=== PATIENT | female | born 1965 | race African-American/Black ===

== ENCOUNTER 2016-07-07 10:41 | Inpatient (IN) | payer OTHER ==
[2016-07-07 11:07] VITALS: BMI 23.6
--- NOTE | 2016-07-07 13:31 | HP ---
Admission [facility] Chief Complaint: REHAB TX FOR ALCOHOL AND DRUG DEPENDENCE Allergies/Adverse Reactions: Allergies Allergy/AdvReac Type Severity Reaction Status Date / Time Penicillins Allergy Severe Hives Verified 07/07/16 12:51 History of Present Illness: 51 Y/O AA/ FEMALE WITH A HX OF ALCOHOL AND COCAINE DEPENDENCE SEEKING REHAB TX. Exam Limitations: No Limitations - Ebola screening Have you traveled outside of the country in the last 21 days: No Have you had contact with anyone from an Ebola affected area: No Have you been sick,other than usual withdrawal symptoms: No Do you have a fever: No - Review of Systems Constitutional: Chills, Night Sweats, Changes in sleep, Unintentional Wgt. Loss EENT: reports: Blurred Vision (WEARS GLASSES), Tearing, Nose Congestion, Dental Problems (BILATERAL DENTURES WITH PATIENT.) Respiratory: reports: Shortness of Breath (ASTHMA/COPD/BRONCHITIS HX), Wheezing Cardiac: reports: Lightheadedness GI: reports: Constipated, Poor Fluid Intake : reports: No Symptoms Reported Musculoskeletal: reports: Back Pain, Joint Pain, Other (ARTHRITIS LEGS/LOWER BACK.--USES WALKER.) Integumentary: reports: Rash (DRY/ ITCHY ON RIGHT ARM. ON A CREAM TX.) Neuro: reports: Headache, Tremors, Unsteady Gait, Dizziness Endocrine: reports: No Symptoms Reported Hematology: reports: No Symptoms Reported Psychiatric: reports: Orientated x3, Anxious, Depressed Other Systems: Reviewed and Negative Patient History - Patient Medical History Hx Anemia: No Hx Asthma: Yes Hx Chronic Obstructive Pulmonary Disease (COPD): Yes Hx Cardiac Disorders: No Hx Hypertension: No Hx Hypercholesterolemia: No HX Cerebrovascular Accident: No Hx Seizures: No Hx Diabetes: No Hx Gastrointestinal Disorders: Yes (TX IN THE PAST WITH PPI) Hx Genitourinary Disorders: Yes (UTI IN THE PAST) Hx Sexually Transmitted Disorders: Yes (SYPHILIS/GONORRHEA TX IN THE PAST.) Hx Renal Disease (ESRD): No Hx Thyroid Disease: No Hx Human Immunodeficiency Virus (HIV): Yes (SINCE 1993;ON NORVIR,TRUVADA, PRESIZTA,ISENTRESS.) Hx Hepatitis C: No Hx Depression: Yes (NO MEDS) Hx Suicide Attempt: No (DENIES) Hx Bipolar Disorder: No Hx Schizophrenia: No - Patient Surgical History Past Surgical History: Yes Hx Neurologic Surgery: No Hx Cataract Extraction: No Hx Cardiac Surgery: No Hx Lung Surgery: No Hx Breast Surgery: No Hx Breast Biopsy: No Hx Abdominal Surgery: Yes (BILATERAL INGUINAL HERNIA SX 1973) Hx Appendectomy: No Hx Cholecystectomy: No Hx Genitourinary Surgery: No Hx Section: Yes (X 1 IN 2003) Hx Orthopedic Surgery: No Hx Hysterectomy: No Other Surgical History: BILATERAL EYE CORRECTION SX 1974 Anesthesia Reaction: No - PPD History Previous Implant?: Yes Documented Results: Negative w/o proof PPD to be Administered?: Yes - Reproductive History Patient is a Female of Child Bearing Age (11 -55 yrs old): Yes LMP comment: 4 YRS AGO Patient : No - Smoking Cessation Smoking history: Current every day smoker Have you smoked in the past 12 months: Yes Aproximately how many cigarettes per day: 10 Hx Chewing Tobacco Use: No Initiated information on smoking cessation: Yes 'Breaking Loose' booklet given: 07/07/16 - Substance & Tx. History Hx Alcohol Use: Yes Hx Substance Use: Yes Substance Use Type: Alcohol, Cocaine Hx Substance Use Treatment: Yes ([facility] YRS AGO) - Substances Abused Alcohol Route: Oral Frequency: 3-6 times per week Amount used: 1 PINT VODKA Age of first use: 9 Date of Last Use: 07/05/16 Crack Route: Smoking Frequency: 3-6 times per week Amount used: $200 Age of first use: 21 Date of Last Use: 07/05/16 Family Disease History - Family Disease History Family Disease History: CA: Father, Mother (HTN), Other: Mother Admission Physical Exam [facility] - Vital Signs Vital Signs: Vital Signs - 24 hr 07/07/16 11:03 Temperature 98.4 F Pulse Rate 92 H Respiratory 20 Rate Blood Pressure 110/69 - Physical General Appearance: Yes: No Apparent Distress, Irritable, Anxious HEENTM: Yes: EOMI, Normocephalic, DOM, Pharynx Normal Respiratory: Yes: Chest Non-Tender, Lungs Clear, Normal Breath Sounds, No Respiratory Distress Neck: Yes: Supple, Trachea in good position Breast: Yes: Breast Exam Deferred Cardiology: Yes: Regular Rhythm, Regular Rate, S1, S2 Abdominal: Yes: Normal Bowel Sounds, Non Tender, Soft Genitourinary: Yes: Other (N/C) Musculoskeletal: Yes: full range of Motion, Gait Steady Extremities: Yes: Normal Range of Motion, Non-Tender Neurological: Yes: foundry helper II-XII NML intact, Fully Oriented, Alert Integumentary: Yes: Dry, Warm, Rash (RIGHT WRIST), Other (FACIAL SKIN TAGS) Lymphatic: Yes: Within Normal Limits - Diagnostic (1) Alcohol dependence with uncomplicated withdrawal Current Visit: Yes Status: Chronic (2) Cocaine dependence, uncomplicated Current Visit: Yes Status: Chronic (3) Asthma Current Visit: Yes Status: Chronic Qualifiers: Asthma severity: mild intermittent Asthma complication type: uncomplicated Qualified Code(s): J45.20 - Mild intermittent asthma, uncomplicated (4) History of COPD Current Visit: Yes Status: Chronic (5) HIV (human immunodeficiency virus infection) Current Visit: Yes Status: Chronic (6) GERD (gastroesophageal reflux disease) Current Visit: Yes Status: Chronic Qualifiers: Esophagitis presence: without esophagitis Qualified Code(s): K21.9 - Gastro-esophageal reflux disease without esophagitis (7) Uses walker Current Visit: Yes Status: Chronic (8) Eczema Current Visit: Yes Status: Acute Qualifiers: Eczema type: other Qualified Code(s): L30.8 - Other specified dermatitis Cleared for Admission S - Detox or Rehab Claeared for Rehab Admission: Yes S Breath Alcohol Content Breath Alcohol Content: 0 Urine Drug Screen - Results Drug Screen Negative: No Urine Drug Screen Results: ROHAN-Cocaine
[2016-07-07] MEDS ORDERED: MAG HYDROX/AL HYDROX/SIMETH 30 ML UNIT-DOSE CUP PO PRN (13:54)
[2016-07-07] MEDS ORDERED: NICOTINE POLACRILEX 2 MG GUM BUC PRN (13:54)
[2016-07-07] MEDS ORDERED: MENTHOL/PHENOL 1 EACH UD MM PRN (13:54)
[2016-07-07] MEDS ORDERED: hydrOXYzine PAMOATE 25 MG CAPSULE (FP) PO PRN (13:54)
[2016-07-07] MEDS ORDERED: IBUPROFEN 400 MG TABLET (FP) PO PRN (13:54)
[2016-07-07] MEDS ORDERED: ACETAMINOPHEN 325 MG TABLET (FP) PO PRN (13:54)
[2016-07-07] MEDS ORDERED: diphenhydrAMINE HCL 50 MG CAPSULE PO PRN (13:54)
[2016-07-07] MEDS ORDERED: LOPERAMIDE HCL 2 MG CAPSULE PO PRN (13:54)
[2016-07-07] MEDS ORDERED: MAGNESIUM HYDROX 2400MG/30ML ORAL SUSPENSION 30 ML CUP PO PRN (13:54)
[2016-07-07] MEDS ORDERED: guaiFENesin/D-METHORPHAN HB 10 ML UNIT-DOSE CUPS PO PRN (13:54)
[2016-07-07] MEDS ORDERED: MAGNESIUM CITRATE 300 ML BOTTLE PO PRN (13:54)
[2016-07-07 15:32] LABS: MCH 23.8 pg (25.7-33.7); MCHC 31.8 g/dl (32.0-36.0); MEAN CELL VOLUME 74.8 fl (80-96); MEAN PLT VOLUME 11.3 fl (7.5-11.1); PLATELET COUNT 172 K/MM3 (134-434); RDW 15.8 % (11.6-15.6)
[2016-07-07 15:46] LABS: URINE APPEARANCE CLEAR; URINE BILIRUBIN NEGATIVE (NEGATIVE); URINE BLOOD NEGATIVE (NEGATIVE); URINE COLOR LTYELLOW; URINE GLUCOSE (UA) NEGATIVE (NEGATIVE); URINE KETONE NEGATIVE (NEGATIVE); URINE NITRITE NEGATIVE (NEGATIVE); URINE PROTEIN NEGATIVE (NEGATIVE); URINE UROBILINOGEN NEGATIVE E.U./dl (0.2-1.0)
[2016-07-07] MEDS: NICOTINE 14 MG/24 HOURS TOPICAL PATCH TD SCH (16:00)
[2016-07-07 16:01] LABS: URINE LEUK ESTERASE TRACE (NEGATIVE)
[2016-07-07 16:07] LABS: ALBUMIN 3.5 g/dl (3.4-5.0); BILIRUBIN,TOTAL 0.2 mg/dL (0.2-1.0); CALCIUM 8.8 mg/dL (8.5-10.1); TOT PROT 7.8 g/dl (6.4-8.2)
[2016-07-07 16:21] LABS: URINE BACTERIA FEW /hpf (NONE SEEN); URINE HYALINE CAST 2 /lpf; URINE RBC 2 /hpf (0-3); URINE WBC 6 /hpf (3-5)
[2016-07-07] MEDS ORDERED: PT OWN MED DRAWER 7, Y5N ONE (22:10)
[2016-07-07] MEDS: RALTEGRAVIR POTASSIUM 400 MG TAB PO SCH (23:13)
[2016-07-07] MEDS: HYDROCORTISONE 1% TOPICAL CREAM 30 GM TUBE TP SCH (23:13)
[2016-07-07] MEDS: TRIAMCINOLONE ACET 0.025% OINTMENT 15 GM TUBE TP SCH (23:13)
[2016-07-07] MEDS: EMTRICITABINE 200MG/TENOFOVIR 300MG PO SCH (23:14)
[2016-07-07] MEDS: KETOCONOZOLE 2% TOPICAL CREAM 15 GM TUBE TP SCH (23:14)
[2016-07-07] MEDS: RITONAVIR 100 MG TABLET PO SCH (23:14)
[2016-07-07] MEDS: THIAMINE HCL 100 MG TABLET (FP) PO SCH (23:14)
[2016-07-07] MEDS: DARUNAVIR ETHANOLATE 800 MG TAB PO SCH (23:14)
[2016-07-08] MEDS ORDERED: PT OWN MED DRAWER 7, Y5N ONE ×5 (08:59→23:38)
--- NOTE | 2016-07-08 10:08 | EKG ---
Test Reason : Blood Pressure : / mmHG Vent. Rate : 068 BPM Atrial Rate : 068 BPM P-R Int : 142 ms QRS Dur : 082 ms QT Int : 436 ms P-R-T Axes : 024 041 054 degrees QTc Int : 463 ms NORMAL SINUS RHYTHM MINIMAL VOLTAGE CRITERIA FOR LVH, MAY BE NORMAL VARIANT BORDERLINE ECG NO PREVIOUS ECGS AVAILABLE Confirmed by DAVID BRO MD ([id number]) on 07/08/2016 10:08:26 AM Referred By: Cathy Davey Confirmed By:DAVID BRO MD
[2016-07-08] MEDS: PRENATAL VITAMINS W/ FOLIC ACID TABLET (FP) PO SCH (10:19)
[2016-07-08] MEDS: KETOCONOZOLE 2% TOPICAL CREAM 15 GM TUBE TP SCH (10:20)
[2016-07-08] MEDS: TRIAMCINOLONE ACET 0.025% OINTMENT 15 GM TUBE TP SCH (10:20)
[2016-07-08] MEDS: NICOTINE 14 MG/24 HOURS TOPICAL PATCH TD SCH (10:21)
[2016-07-08] MEDS: HYDROCORTISONE 1% TOPICAL CREAM 30 GM TUBE TP SCH (10:21)
[2016-07-08] MEDS ORDERED: PNEUMOC 13-VAL CONJ-DIP CRM/PF 0.5 ML DISP.SYRIN IM ONE (12:00)
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
--- NOTE | 2016-07-08 14:29 | PN ---
[facility] Progress Note Note: Pt. has abscess rt. axilla Vital Signs - 8 hr 07/08/16 07:18 Temperature 98.0 F Pulse Rate 67 Respiratory 18 Rate Blood Pressure 123/88 Laboratory Tests 07/07/16 07/07/16 07/07/16 13:00 13:00 13:00 WBC 2.0 L RBC 4.44 Hgb 10.6 L Hct 33.2 MCV 74.8 L MCHC 31.8 L RDW 15.8 H Plt Count 172 MPV 11.3 H Sickle Cell Screen Sodium 141 Potassium 4.1 Chloride 105 Carbon Dioxide 26 Anion Gap 10 BUN 15 Creatinine 1.0 Creat Clearance w eGFR 58.45 Random Glucose 91 Calcium 8.8 Total Bilirubin 0.2 AST 16 ALT 17 Alkaline Phosphatase 121 H Total Protein 7.8 Albumin 3.5 Urine Color Urine Appearance Urine pH Ur Specific [place] Urine Protein Urine Glucose (UA) Urine Ketones Urine Blood Urine Nitrite Urine Bilirubin Urine Urobilinogen Ur Leukocyte Esterase Urine RBC Urine WBC Ur Epithelial Cells Urine Bacteria Hyaline Casts RPR Titer Nonreactive 07/07/16 07/07/16 13:00 14:00 WBC RBC Hgb Hct MCV MCHC RDW Plt Count MPV Sickle Cell Screen Negative Sodium Potassium Chloride Carbon Dioxide Anion Gap BUN Creatinine Creat Clearance w eGFR Random Glucose Calcium Total Bilirubin AST ALT Alkaline Phosphatase Total Protein Albumin Urine Color Ltyellow Urine Appearance Clear Urine pH 6.0 Ur Specific [place] 1.020 Urine Protein Negative Urine Glucose (UA) Negative Urine Ketones Negative Urine Blood Negative Urine Nitrite Negative Urine Bilirubin Negative Urine Urobilinogen Negative Ur Leukocyte Esterase Trace H Urine RBC 2 Urine WBC 6 Ur Epithelial Cells Moderate Urine Bacteria Few Hyaline Casts 2 RPR Titer labs noted,consistent with AIDS
[2016-07-08] MEDS ORDERED: SULFAMETHOXAZOLE/TRIMETHOPRIM 800MG/160MG D.S. TABLET PO ONE (14:45)
[2016-07-08] MEDS: COLLOIDAL OATMEAL 1 BAR EACH TP PRN (15:17)
[2016-07-08] MEDS: THIAMINE HCL 100 MG TABLET (FP) PO SCH (21:51)
[2016-07-08] MEDS: DARUNAVIR ETHANOLATE 800 MG TAB PO SCH (21:52)
[2016-07-08] MEDS: RITONAVIR 100 MG TABLET PO SCH (21:52)
[2016-07-08] MEDS: BACITRACIN 0.9 GM PACKET TP SCH (21:53)
[2016-07-08] MEDS: RALTEGRAVIR POTASSIUM 400 MG TAB PO SCH (21:53)
[2016-07-08] MEDS: SULFAMETHOXAZOLE/TRIMETHOPRIM 800MG/160MG D.S. TABLET PO SCH (21:54)
[2016-07-08] MEDS: EMTRICITABINE 200MG/TENOFOVIR 300MG PO SCH (21:54)
[2016-07-08] MEDS: HYDROCORTISONE 1% TOPICAL CREAM 30 GM TUBE TP PRN (21:55)
[2016-07-08] MEDS: KETOCONOZOLE 2% TOPICAL CREAM 15 GM TUBE TP PRN (21:57)
[2016-07-08] MEDS: AMMONIUM LACTATE 12% LOTION 225 GM BOTTLE TP PRN (21:58)
[2016-07-08] MEDS: TRIAMCINOLONE ACET 0.025% OINTMENT 15 GM TUBE TP PRN (21:59)
[2016-07-09] MEDS: HYDROCORTISONE 1% TOPICAL CREAM 30 GM TUBE TP PRN (06:46)
[2016-07-09] MEDS: KETOCONOZOLE 2% TOPICAL CREAM 15 GM TUBE TP PRN (06:46)
[2016-07-09] MEDS ORDERED: PT OWN MED DRAWER 7, Y5N ONE (06:47)
[2016-07-09] MEDS: TRIAMCINOLONE ACET 0.025% OINTMENT 15 GM TUBE TP PRN ×2 (06:47→21:44)
[2016-07-09] MEDS: AMMONIUM LACTATE 12% LOTION 225 GM BOTTLE TP PRN ×2 (06:47→21:44)
[2016-07-09] MEDS: BACITRACIN 0.9 GM PACKET TP SCH ×2 (10:44→21:43)
[2016-07-09] MEDS: PRENATAL VITAMINS W/ FOLIC ACID TABLET (FP) PO SCH (10:44)
[2016-07-09] MEDS: NICOTINE 14 MG/24 HOURS TOPICAL PATCH TD SCH (10:44)
[2016-07-09] MEDS: SULFAMETHOXAZOLE/TRIMETHOPRIM 800MG/160MG D.S. TABLET PO SCH ×2 (10:44→21:43)
[2016-07-09] MEDS: DARUNAVIR ETHANOLATE 800 MG TAB PO SCH (21:40)
[2016-07-09] MEDS: RITONAVIR 100 MG TABLET PO SCH (21:40)
[2016-07-09] MEDS: RALTEGRAVIR POTASSIUM 400 MG TAB PO SCH (21:41)
[2016-07-09] MEDS: THIAMINE HCL 100 MG TABLET (FP) PO SCH (21:41)
[2016-07-09] MEDS: EMTRICITABINE 200MG/TENOFOVIR 300MG PO SCH (23:37)
[2016-07-10] MEDS ORDERED: PT OWN MED DRAWER 7, Y5N ONE ×4 (07:05→19:49)
[2016-07-10] MEDS: HYDROCORTISONE 1% TOPICAL CREAM 30 GM TUBE TP PRN ×2 (07:11→21:45)
[2016-07-10] MEDS: TRIAMCINOLONE ACET 0.025% OINTMENT 15 GM TUBE TP PRN ×2 (07:11→21:44)
[2016-07-10] MEDS: KETOCONOZOLE 2% TOPICAL CREAM 15 GM TUBE TP PRN (07:12)
[2016-07-10] MEDS: AMMONIUM LACTATE 12% LOTION 225 GM BOTTLE TP PRN ×2 (07:12→21:44)
[2016-07-10] MEDS: PRENATAL VITAMINS W/ FOLIC ACID TABLET (FP) PO SCH (10:32)
[2016-07-10] MEDS: BACITRACIN 0.9 GM PACKET TP SCH ×2 (10:33→21:42)
[2016-07-10] MEDS: SULFAMETHOXAZOLE/TRIMETHOPRIM 800MG/160MG D.S. TABLET PO SCH ×2 (10:33→21:42)
[2016-07-10] MEDS: NICOTINE 14 MG/24 HOURS TOPICAL PATCH TD SCH (10:34)
[2016-07-10] MEDS: RALTEGRAVIR POTASSIUM 400 MG TAB PO SCH (21:40)
[2016-07-10] MEDS: EMTRICITABINE 200MG/TENOFOVIR 300MG PO SCH (21:40)
[2016-07-10] MEDS: DARUNAVIR ETHANOLATE 800 MG TAB PO SCH (21:40)
[2016-07-10] MEDS: THIAMINE HCL 100 MG TABLET (FP) PO SCH (21:41)
[2016-07-10] MEDS: RITONAVIR 100 MG TABLET PO SCH (21:43)
[2016-07-11] MEDS: PRENATAL VITAMINS W/ FOLIC ACID TABLET (FP) PO SCH (10:15)
[2016-07-11] MEDS: BACITRACIN 0.9 GM PACKET TP SCH ×2 (10:15→21:35)
[2016-07-11] MEDS: SULFAMETHOXAZOLE/TRIMETHOPRIM 800MG/160MG D.S. TABLET PO SCH ×2 (10:15→21:33)
[2016-07-11] MEDS: NICOTINE 14 MG/24 HOURS TOPICAL PATCH TD SCH (10:16)
[2016-07-11] MEDS ORDERED: PT OWN MED DRAWER 7, Y5N ONE (20:30)
[2016-07-11] MEDS: THIAMINE HCL 100 MG TABLET (FP) PO SCH (21:33)
[2016-07-11] MEDS: DARUNAVIR ETHANOLATE 800 MG TAB PO SCH (21:33)
[2016-07-11] MEDS: RITONAVIR 100 MG TABLET PO SCH (21:34)
[2016-07-11] MEDS: RALTEGRAVIR POTASSIUM 400 MG TAB PO SCH (21:34)
[2016-07-11] MEDS: EMTRICITABINE 200MG/TENOFOVIR 300MG PO SCH (21:35)
[2016-07-12] MEDS: TRIAMCINOLONE ACET 0.025% OINTMENT 15 GM TUBE TP PRN (06:25)
[2016-07-12] MEDS: AMMONIUM LACTATE 12% LOTION 225 GM BOTTLE TP PRN (06:25)
[2016-07-12] MEDS: HYDROCORTISONE 1% TOPICAL CREAM 30 GM TUBE TP PRN (06:25)
[2016-07-12] MEDS: KETOCONOZOLE 2% TOPICAL CREAM 15 GM TUBE TP PRN (06:26)
[2016-07-12] MEDS: BACITRACIN 0.9 GM PACKET TP SCH ×2 (10:13→23:25)
[2016-07-12] MEDS: NICOTINE 14 MG/24 HOURS TOPICAL PATCH TD SCH (10:13)
[2016-07-12] MEDS: SULFAMETHOXAZOLE/TRIMETHOPRIM 800MG/160MG D.S. TABLET PO SCH ×2 (10:14→21:29)
[2016-07-12] MEDS: PRENATAL VITAMINS W/ FOLIC ACID TABLET (FP) PO SCH (10:14)
[2016-07-12] MEDS ORDERED: PT OWN MED DRAWER 7, Y5N ONE ×2 (19:59→21:32)
[2016-07-12] MEDS: RALTEGRAVIR POTASSIUM 400 MG TAB PO SCH (21:28)
[2016-07-12] MEDS: DARUNAVIR ETHANOLATE 800 MG TAB PO SCH (21:28)
[2016-07-12] MEDS: RITONAVIR 100 MG TABLET PO SCH (21:28)
[2016-07-12] MEDS: THIAMINE HCL 100 MG TABLET (FP) PO SCH (21:29)
[2016-07-12] MEDS: EMTRICITABINE 200MG/TENOFOVIR 300MG PO SCH (23:25)
[2016-07-13] MEDS: SULFAMETHOXAZOLE/TRIMETHOPRIM 800MG/160MG D.S. TABLET PO SCH ×2 (10:19→21:29)
[2016-07-13] MEDS: PRENATAL VITAMINS W/ FOLIC ACID TABLET (FP) PO SCH (10:19)
[2016-07-13] MEDS: NICOTINE 14 MG/24 HOURS TOPICAL PATCH TD SCH (10:19)
[2016-07-13] MEDS: BACITRACIN 0.9 GM PACKET TP SCH ×2 (10:19→21:29)
[2016-07-13] MEDS: HYDROCORTISONE 1% TOPICAL CREAM 30 GM TUBE TP PRN (10:22)
[2016-07-13] MEDS ORDERED: PT OWN MED DRAWER 7, Y5N ONE ×2 (10:22→20:18)
[2016-07-13] MEDS: KETOCONOZOLE 2% TOPICAL CREAM 15 GM TUBE TP PRN (10:22)
[2016-07-13] MEDS: TRIAMCINOLONE ACET 0.025% OINTMENT 15 GM TUBE TP PRN (10:22)
[2016-07-13] MEDS: RALTEGRAVIR POTASSIUM 400 MG TAB PO SCH (21:28)
[2016-07-13] MEDS: DARUNAVIR ETHANOLATE 800 MG TAB PO SCH (21:28)
[2016-07-13] MEDS: EMTRICITABINE 200MG/TENOFOVIR 300MG PO SCH (21:28)
[2016-07-13] MEDS: THIAMINE HCL 100 MG TABLET (FP) PO SCH (21:29)
[2016-07-13] MEDS: RITONAVIR 100 MG TABLET PO SCH (21:29)
[2016-07-14] MEDS: KETOCONOZOLE 2% TOPICAL CREAM 15 GM TUBE TP PRN (06:31)
[2016-07-14] MEDS: TRIAMCINOLONE ACET 0.025% OINTMENT 15 GM TUBE TP PRN (06:31)
[2016-07-14] MEDS: AMMONIUM LACTATE 12% LOTION 225 GM BOTTLE TP PRN (06:31)
[2016-07-14] MEDS: HYDROCORTISONE 1% TOPICAL CREAM 30 GM TUBE TP PRN (06:32)
[2016-07-14] MEDS ORDERED: PT OWN MED DRAWER 7, Y5N ONE (08:59)
[2016-07-14] MEDS: SULFAMETHOXAZOLE/TRIMETHOPRIM 800MG/160MG D.S. TABLET PO SCH ×2 (10:15→21:41)
[2016-07-14] MEDS: PRENATAL VITAMINS W/ FOLIC ACID TABLET (FP) PO SCH (10:15)
[2016-07-14] MEDS: BACITRACIN 0.9 GM PACKET TP SCH ×2 (10:16→21:40)
[2016-07-14] MEDS: NICOTINE 14 MG/24 HOURS TOPICAL PATCH TD SCH (10:16)
[2016-07-14] MEDS: RALTEGRAVIR POTASSIUM 400 MG TAB PO SCH (21:41)
[2016-07-14] MEDS: DARUNAVIR ETHANOLATE 800 MG TAB PO SCH (21:41)
[2016-07-14] MEDS: RITONAVIR 100 MG TABLET PO SCH (21:41)
[2016-07-14] MEDS: THIAMINE HCL 100 MG TABLET (FP) PO SCH (21:41)
[2016-07-14] MEDS: EMTRICITABINE 200MG/TENOFOVIR 300MG PO SCH (21:42)
[2016-07-15] MEDS: AMMONIUM LACTATE 12% LOTION 225 GM BOTTLE TP PRN ×2 (06:19→21:57)
[2016-07-15] MEDS: HYDROCORTISONE 1% TOPICAL CREAM 30 GM TUBE TP PRN ×2 (06:20→21:56)
[2016-07-15] MEDS: TRIAMCINOLONE ACET 0.025% OINTMENT 15 GM TUBE TP PRN ×2 (06:20→21:58)
[2016-07-15] MEDS: KETOCONOZOLE 2% TOPICAL CREAM 15 GM TUBE TP PRN (06:20)
[2016-07-15] MEDS ORDERED: PT OWN MED DRAWER 7, Y5N ONE ×2 (09:11→21:42)
[2016-07-15] MEDS: PRENATAL VITAMINS W/ FOLIC ACID TABLET (FP) PO SCH (10:24)
[2016-07-15] MEDS: NICOTINE 14 MG/24 HOURS TOPICAL PATCH TD SCH (10:24)
[2016-07-15] MEDS: SULFAMETHOXAZOLE/TRIMETHOPRIM 800MG/160MG D.S. TABLET PO SCH ×2 (10:24→21:51)
[2016-07-15] MEDS: BACITRACIN 0.9 GM PACKET TP SCH ×2 (10:24→21:55)
[2016-07-15] MEDS: THIAMINE HCL 100 MG TABLET (FP) PO SCH (21:51)
[2016-07-15] MEDS: RALTEGRAVIR POTASSIUM 400 MG TAB PO SCH (21:52)
[2016-07-15] MEDS: DARUNAVIR ETHANOLATE 800 MG TAB PO SCH (21:53)
[2016-07-15] MEDS: RITONAVIR 100 MG TABLET PO SCH (21:54)
[2016-07-15] MEDS: EMTRICITABINE 200MG/TENOFOVIR 300MG PO SCH (21:54)
[2016-07-16] MEDS: SULFAMETHOXAZOLE/TRIMETHOPRIM 800MG/160MG D.S. TABLET PO SCH ×2 (10:40→21:30)
[2016-07-16] MEDS: BACITRACIN 0.9 GM PACKET TP SCH ×2 (10:40→21:29)
[2016-07-16] MEDS: PRENATAL VITAMINS W/ FOLIC ACID TABLET (FP) PO SCH (10:40)
[2016-07-16] MEDS: NICOTINE 14 MG/24 HOURS TOPICAL PATCH TD SCH (10:41)
--- NOTE | 2016-07-16 11:36 | PN ---
Psychiatric Progress Note Vital Signs: Vital Signs Period Temp Pulse Resp BP Sys/Nelson Pulse Ox Last 24 Hr 98.0 F 80 16-18 104/71 Date of Session: 07/16/16 Chief Complaint:: "anxious" HPI: Patient is addressing alcohol,cocaine dependence comorbid substance induced mood disorder. ROS: Significant for HIV+,Eczema,COPD,GERD,BA medically managed. Current Medications: Active Medications Generic Name Dose Route Start Last Admin Trade Name Freq PRN Reason Stop Dose Admin Acetaminophen 650 mg 07/07/16 13:54 Tylenol - PO Q4H PRN PAIN Al Hydroxide/Mg Hydroxide 30 ml 07/07/16 13:54 07/15/16 06:59 Mylanta Oral Suspension - PO 30 ml Q6H PRN Administration DYSPEPSIA Bacitracin 0.9 gm 07/08/16 22:00 07/16/16 10:40 Bacitracin - TP 0.9 gm BID JOSUE Administration Colloidal Oatmeal 1 applic 07/08/16 14:21 07/08/16 15:17 Aveeno Soap - TP 1 bar DAILY PRN Administration HYGEINE Darunavir 800 mg 07/07/16 22:00 07/15/16 21:53 Prezista - PO 800 mg HS JOSUE Administration Diphenhydramine HCl 50 mg 07/07/16 13:54 Benadryl - PO HSMR1 PRN INSOMNIA Emtricitabine/Tenofovir 1 tab 07/07/16 22:00 07/15/16 21:54 Truvada PO 1 tab HS JOSUE Administration Eucalyptus/Menthol/Phenol/Sorbitol 1 each 07/07/16 13:54 Cepastat Lozenge - MM Q4H PRN SORE THROAT Guaifenesin 10 ml 07/07/16 13:54 Robitussin Dm - PO Q6H PRN COUGH Hydrocortisone 1 applic 07/08/16 14:27 07/15/16 21:56 Hytone 1% Cream - TP 1 applic BID PRN Administration rash Hydroxyzine Pamoate 25 mg 07/07/16 13:54 Vistaril - PO Q4H PRN AGITATION Ibuprofen 400 mg 07/07/16 13:54 07/10/16 19:00 Motrin - PO 400 mg Q6H PRN Administration SEVERE PAIN Ketoconazole 1 applic 07/08/16 14:27 07/15/16 06:20 Nizoral 2% Cream - TP 1 applic BID PRN Administration rash Lactic Acid 1 applic 07/08/16 14:22 07/15/16 21:57 Lac-Hydrin 12 TP 1 applic BID PRN Administration DRY SKIN Loperamide HCl 4 mg 07/07/16 13:54 Imodium - PO Q6H PRN DIARRHEA Magnesium Citrate 300 ml 07/07/16 13:54 Citroma - PO Q48H PRN CONSTIPATION Magnesium Hydroxide 30 ml 07/07/16 13:54 07/14/16 18:00 Milk Of Magnesia - PO 30 ml DAILY PRN Administration CONSTIPATION Nicotine 14 mg 07/07/16 14:40 07/16/16 10:41 Nicoderm Patch - TD Not Given DAILY JOSUE Nicotine Polacrilex 2 mg 07/07/16 13:54 Nicorette Gum - BUC Q2H PRN NICOTINE REPLACEMENT RX Multivit/Folic Acid/Iron 1 tab 07/08/16 10:00 07/16/16 10:40 Vitamins (Sjr) - PO 1 tab DAILY JOSUE Administration Pseudoephedrine/Triprolidine 1 combo 07/07/16 13:54 Actifed - PO TID PRN NASAL CONGESTION Raltegravir 800 mg 07/07/16 22:00 07/15/16 21:52 Isentress - PO 800 mg HS JOSUE Administration Ritonavir 100 mg 07/07/16 22:00 07/15/16 21:54 Norvir - PO 100 mg HS JOSUE Administration Thiamine HCl 100 mg 07/07/16 22:00 07/15/16 21:51 Vitamin B1 - PO 100 mg HS JOSUE Administration Triamcinolone Acetonide 1 applic 07/08/16 14:27 07/15/16 21:58 Aristocort 0.025% Ointment - TP 1 applic BID PRN Administration rash Trimethoprim/Sulfamethoxazole 1 each 07/08/16 22:00 07/16/16 10:40 Bactrim Ds - PO 07/18/16 21:59 1 each BID JOSUE Administration Medication(s) Change(s): Buspar 5 mg po tid Current Side Effect: No Lab tests ordered: No Lab tests reviewed: Yes Provider note:: Patient reports feeling very anxious, states was on Depakote 2 years ago due to mood swings and Seroquel which she does not like due to sedation, she reports she has a difficult time to stay in groups due to her anxiety. Reviewed indications and properties of buspar, psychoeducation and supportive therapy provided, patient agreed to start Buspar 5 mg po tid, will start, will adjust dosage when indicated, monitor progress. Total face to face time:: 30 Mental Status Exam - Mental Status Exam Alert and Oriented to: Time, Place, Person Cognitive Function: Good Patient Appearance: Well Groomed Mood: Suspicious, Anxious, Irritable Affect: Appropriate, Labile Patient Behavior: Cooperative Speech Pattern: Appropriate Voice Loudness: Normal Thought Process: Intact, Goal Oriented Thought Disorder: Not Present Hallucinations: Denies Suicidal Ideation: Denies Homicidal Ideation: Denies Insight/Judgement: Fair Sleep: Fair Appetite: Fair Muscle strength/Tone: Normal Gait/Station: Normal Psychiatric Treatment Plan - Problem List (1) Cocaine dependence, uncomplicated Current Visit: Yes (2) Substance induced mood disorder Current Visit: Yes (3) Alcohol dependence Current Visit: Yes
[2016-07-16] MEDS: busPIRone HCL 5 MG TABLET PO SCH ×2 (13:35→21:29)
[2016-07-16] MEDS: DARUNAVIR ETHANOLATE 800 MG TAB PO SCH (21:29)
[2016-07-16] MEDS: RALTEGRAVIR POTASSIUM 400 MG TAB PO SCH (21:29)
[2016-07-16] MEDS ORDERED: PT OWN MED DRAWER 7, Y5N ONE (21:33)
[2016-07-16] MEDS: RITONAVIR 100 MG TABLET PO SCH (21:33)
[2016-07-16] MEDS: EMTRICITABINE 200MG/TENOFOVIR 300MG PO SCH (21:34)
[2016-07-16] MEDS: THIAMINE HCL 100 MG TABLET (FP) PO SCH (21:35)
[2016-07-17] MEDS ORDERED: PT OWN MED DRAWER 7, Y5N ONE ×2 (06:18→19:45)
[2016-07-17] MEDS: busPIRone HCL 5 MG TABLET PO SCH ×3 (06:23→21:48)
[2016-07-17] MEDS: NICOTINE 14 MG/24 HOURS TOPICAL PATCH TD SCH (10:21)
[2016-07-17] MEDS: BACITRACIN 0.9 GM PACKET TP SCH ×2 (10:21→21:49)
[2016-07-17] MEDS: PRENATAL VITAMINS W/ FOLIC ACID TABLET (FP) PO SCH (10:21)
[2016-07-17] MEDS: SULFAMETHOXAZOLE/TRIMETHOPRIM 800MG/160MG D.S. TABLET PO SCH ×2 (10:21→21:49)
[2016-07-17] MEDS: EMTRICITABINE 200MG/TENOFOVIR 300MG PO SCH (21:48)
[2016-07-17] MEDS: RITONAVIR 100 MG TABLET PO SCH (21:48)
[2016-07-17] MEDS: THIAMINE HCL 100 MG TABLET (FP) PO SCH (21:49)
[2016-07-17] MEDS: RALTEGRAVIR POTASSIUM 400 MG TAB PO SCH (21:49)
[2016-07-17] MEDS: DARUNAVIR ETHANOLATE 800 MG TAB PO SCH (21:49)
[2016-07-18] MEDS: busPIRone HCL 5 MG TABLET PO SCH ×3 (06:36→21:42)
[2016-07-18] MEDS: COLLOIDAL OATMEAL 1 BAR EACH TP PRN (06:36)
[2016-07-18] MEDS: SULFAMETHOXAZOLE/TRIMETHOPRIM 800MG/160MG D.S. TABLET PO SCH (10:38)
[2016-07-18] MEDS: NICOTINE 14 MG/24 HOURS TOPICAL PATCH TD SCH (10:38)
[2016-07-18] MEDS: BACITRACIN 0.9 GM PACKET TP SCH ×2 (10:38→21:42)
[2016-07-18] MEDS: PRENATAL VITAMINS W/ FOLIC ACID TABLET (FP) PO SCH (10:38)
[2016-07-18] MEDS: RALTEGRAVIR POTASSIUM 400 MG TAB PO SCH (21:42)
[2016-07-18] MEDS: DARUNAVIR ETHANOLATE 800 MG TAB PO SCH (21:42)
[2016-07-18] MEDS: EMTRICITABINE 200MG/TENOFOVIR 300MG PO SCH (21:44)
[2016-07-18] MEDS: RITONAVIR 100 MG TABLET PO SCH (21:44)
[2016-07-18] MEDS: THIAMINE HCL 100 MG TABLET (FP) PO SCH (21:44)
[2016-07-19] MEDS: busPIRone HCL 5 MG TABLET PO SCH ×3 (06:28→21:42)
[2016-07-19] MEDS: PRENATAL VITAMINS W/ FOLIC ACID TABLET (FP) PO SCH (10:33)
[2016-07-19] MEDS: BACITRACIN 0.9 GM PACKET TP SCH ×2 (10:33→21:44)
[2016-07-19] MEDS: NICOTINE 14 MG/24 HOURS TOPICAL PATCH TD SCH (10:33)
[2016-07-19] MEDS: RALTEGRAVIR POTASSIUM 400 MG TAB PO SCH (21:42)
[2016-07-19] MEDS: THIAMINE HCL 100 MG TABLET (FP) PO SCH (21:42)
[2016-07-19] MEDS: DARUNAVIR ETHANOLATE 800 MG TAB PO SCH (21:42)
[2016-07-19] MEDS: RITONAVIR 100 MG TABLET PO SCH (21:43)
[2016-07-19] MEDS: EMTRICITABINE 200MG/TENOFOVIR 300MG PO SCH (21:44)
[2016-07-20] MEDS: busPIRone HCL 5 MG TABLET PO SCH ×3 (06:25→21:43)
[2016-07-20] MEDS: NICOTINE 14 MG/24 HOURS TOPICAL PATCH TD SCH (10:33)
[2016-07-20] MEDS: PRENATAL VITAMINS W/ FOLIC ACID TABLET (FP) PO SCH (10:33)
[2016-07-20] MEDS: BACITRACIN 0.9 GM PACKET TP SCH ×2 (11:06→21:41)
[2016-07-20] MEDS: SIMETHICONE 80 MG TAB.CHEW (FP) PO PRN (12:11)
[2016-07-20] MEDS: DARUNAVIR ETHANOLATE 800 MG TAB PO SCH (21:40)
[2016-07-20] MEDS: THIAMINE HCL 100 MG TABLET (FP) PO SCH (21:40)
[2016-07-20] MEDS: RITONAVIR 100 MG TABLET PO SCH (21:41)
[2016-07-20] MEDS: EMTRICITABINE 200MG/TENOFOVIR 300MG PO SCH (21:41)
[2016-07-20] MEDS: RALTEGRAVIR POTASSIUM 400 MG TAB PO SCH (21:42)
[2016-07-21] MEDS: BACITRACIN 0.9 GM PACKET TP SCH ×2 (10:33→21:37)
[2016-07-21] MEDS: NICOTINE 14 MG/24 HOURS TOPICAL PATCH TD SCH (10:34)
[2016-07-21] MEDS: PRENATAL VITAMINS W/ FOLIC ACID TABLET (FP) PO SCH (10:34)
[2016-07-21] MEDS: busPIRone HCL 5 MG TABLET PO SCH ×2 (10:34→21:37)
[2016-07-21] MEDS ORDERED: PT OWN MED DRAWER 7, Y5N ONE ×3 (20:33→22:03)
[2016-07-21] MEDS: THIAMINE HCL 100 MG TABLET (FP) PO SCH (21:37)
[2016-07-21] MEDS: DARUNAVIR ETHANOLATE 800 MG TAB PO SCH (21:38)
[2016-07-21] MEDS: RALTEGRAVIR POTASSIUM 400 MG TAB PO SCH (21:38)
[2016-07-21] MEDS: EMTRICITABINE 200MG/TENOFOVIR 300MG PO SCH (21:39)
[2016-07-21] MEDS: RITONAVIR 100 MG TABLET PO SCH (21:39)
[2016-07-22] MEDS: BACITRACIN 0.9 GM PACKET TP SCH ×2 (10:41→21:44)
[2016-07-22] MEDS: busPIRone HCL 5 MG TABLET PO SCH ×2 (10:41→21:44)
[2016-07-22] MEDS: NICOTINE 14 MG/24 HOURS TOPICAL PATCH TD SCH (10:42)
[2016-07-22] MEDS: PRENATAL VITAMINS W/ FOLIC ACID TABLET (FP) PO SCH (10:42)
[2016-07-22] MEDS: SIMETHICONE 80 MG TAB.CHEW (FP) PO PRN (10:45)
[2016-07-22] MEDS: TRIAMCINOLONE ACET 0.025% OINTMENT 15 GM TUBE TP PRN (10:46)
[2016-07-22] MEDS: HYDROCORTISONE 1% TOPICAL CREAM 30 GM TUBE TP PRN (10:48)
[2016-07-22] MEDS: KETOCONOZOLE 2% TOPICAL CREAM 15 GM TUBE TP PRN (10:49)
[2016-07-22] MEDS: RALTEGRAVIR POTASSIUM 400 MG TAB PO SCH (21:44)
[2016-07-22] MEDS: DARUNAVIR ETHANOLATE 800 MG TAB PO SCH (21:45)
[2016-07-22] MEDS: RITONAVIR 100 MG TABLET PO SCH (21:45)
[2016-07-22] MEDS: THIAMINE HCL 100 MG TABLET (FP) PO SCH (21:46)
[2016-07-22] MEDS: EMTRICITABINE 200MG/TENOFOVIR 300MG PO SCH (21:46)
[2016-07-23] MEDS: NICOTINE 14 MG/24 HOURS TOPICAL PATCH TD SCH (10:44)
[2016-07-23] MEDS: BACITRACIN 0.9 GM PACKET TP SCH ×2 (10:44→21:35)
[2016-07-23] MEDS: PRENATAL VITAMINS W/ FOLIC ACID TABLET (FP) PO SCH (10:44)
[2016-07-23] MEDS: busPIRone HCL 5 MG TABLET PO SCH ×2 (10:45→21:32)
[2016-07-23] MEDS: P-EPHED 60MG/TRIPROLIDI 2.5MG TABLET PO PRN (13:26)
[2016-07-23] MEDS: EMTRICITABINE 200MG/TENOFOVIR 300MG PO SCH (21:30)
[2016-07-23] MEDS: RITONAVIR 100 MG TABLET PO SCH (21:31)
[2016-07-23] MEDS: DARUNAVIR ETHANOLATE 800 MG TAB PO SCH (21:31)
[2016-07-23] MEDS: RALTEGRAVIR POTASSIUM 400 MG TAB PO SCH (21:31)
[2016-07-23] MEDS: THIAMINE HCL 100 MG TABLET (FP) PO SCH (21:32)
[2016-07-23] MEDS ORDERED: PT OWN MED DRAWER 7, Y5N ONE (22:44)
[2016-07-24] MEDS: PRENATAL VITAMINS W/ FOLIC ACID TABLET (FP) PO SCH (10:20)
[2016-07-24] MEDS: busPIRone HCL 5 MG TABLET PO SCH ×2 (10:21→21:45)
[2016-07-24] MEDS: BACITRACIN 0.9 GM PACKET TP SCH ×2 (10:21→21:46)
[2016-07-24] MEDS: NICOTINE 14 MG/24 HOURS TOPICAL PATCH TD SCH (10:21)
[2016-07-24] MEDS: EMTRICITABINE 200MG/TENOFOVIR 300MG PO SCH (21:43)
[2016-07-24] MEDS: DARUNAVIR ETHANOLATE 800 MG TAB PO SCH (21:43)
[2016-07-24] MEDS: THIAMINE HCL 100 MG TABLET (FP) PO SCH (21:43)
[2016-07-24] MEDS: RALTEGRAVIR POTASSIUM 400 MG TAB PO SCH (21:44)
[2016-07-24] MEDS: RITONAVIR 100 MG TABLET PO SCH (21:44)
[2016-07-24] MEDS: P-EPHED 60MG/TRIPROLIDI 2.5MG TABLET PO PRN (21:46)
[2016-07-25] MEDS: NICOTINE 14 MG/24 HOURS TOPICAL PATCH TD SCH (10:23)
[2016-07-25] MEDS: busPIRone HCL 5 MG TABLET PO SCH ×2 (10:23→21:53)
[2016-07-25] MEDS: PRENATAL VITAMINS W/ FOLIC ACID TABLET (FP) PO SCH (10:23)
[2016-07-25] MEDS: BACITRACIN 0.9 GM PACKET TP SCH ×2 (10:23→21:42)
[2016-07-25] MEDS: DARUNAVIR ETHANOLATE 800 MG TAB PO SCH (21:42)
[2016-07-25] MEDS: THIAMINE HCL 100 MG TABLET (FP) PO SCH (21:42)
[2016-07-25] MEDS: RITONAVIR 100 MG TABLET PO SCH (21:44)
[2016-07-25] MEDS: EMTRICITABINE 200MG/TENOFOVIR 300MG PO SCH (21:45)
[2016-07-25] MEDS: RALTEGRAVIR POTASSIUM 400 MG TAB PO SCH (21:59)
[2016-07-25] MEDS ORDERED: RALTEGRAVIR POTASSIUM 400 MG TAB PO SCH (22:00)
[2016-07-26] MEDS: NICOTINE 14 MG/24 HOURS TOPICAL PATCH TD SCH (10:25)
[2016-07-26] MEDS: busPIRone HCL 5 MG TABLET PO SCH (10:25)
[2016-07-26] MEDS: PRENATAL VITAMINS W/ FOLIC ACID TABLET (FP) PO SCH (10:25)
[2016-07-26] MEDS: BACITRACIN 0.9 GM PACKET TP SCH ×2 (10:25→21:56)
[2016-07-26] MEDS ORDERED: PT OWN MED DRAWER 7, Y5N ONE (18:20)
[2016-07-26] MEDS: RALTEGRAVIR POTASSIUM 400 MG TAB PO SCH (21:54)
[2016-07-26] MEDS: THIAMINE HCL 100 MG TABLET (FP) PO SCH (21:54)
[2016-07-26] MEDS: RITONAVIR 100 MG TABLET PO SCH (21:54)
[2016-07-26] MEDS: DARUNAVIR ETHANOLATE 800 MG TAB PO SCH (21:54)
[2016-07-26] MEDS: EMTRICITABINE 200MG/TENOFOVIR 300MG PO SCH (21:55)
[2016-07-27] MEDS ORDERED: PT OWN MED DRAWER 7, Y5N ONE (01:10)
[2016-07-27 07:04] VITALS: BP 115/72; PULSE 73; TEMP 97.7
[2016-07-27] MEDS: PRENATAL VITAMINS W/ FOLIC ACID TABLET (FP) PO SCH (09:25)
[2016-07-27] MEDS: BACITRACIN 0.9 GM PACKET TP SCH (09:25)
[2016-07-27] MEDS: NICOTINE 14 MG/24 HOURS TOPICAL PATCH TD SCH (09:25)
--- NOTE | 2016-07-27 09:25 | PN ---
[id number] 16-18 115/72 Date of Session: 07/27/16 Chief Complaint:: Discharge visit HPI: Patient addressed Alcohol and Cocaine dependence comorbid with Substance induced mood disorder. ROS: BA,HIV+,COPD,GERD. Current Medications: Active Medications Generic Name Dose Route Start Last Admin Trade Name Freq PRN Reason Stop Dose Admin Acetaminophen 650 mg 07/07/16 13:54 Tylenol - PO Q4H PRN PAIN Al Hydroxide/Mg Hydroxide 30 ml 07/07/16 13:54 07/15/16 06:59 Mylanta Oral Suspension - PO 30 ml Q6H PRN Administration DYSPEPSIA Bacitracin 0.9 gm 07/08/16 22:00 07/26/16 21:56 Bacitracin - TP 0.9 gm BID JOSUE Administration Colloidal Oatmeal 1 applic 07/08/16 14:21 07/18/16 06:36 Aveeno Soap - TP 1 bar DAILY PRN Administration HYGEINE Darunavir 800 mg 07/07/16 22:00 07/26/16 21:54 Prezista - PO 800 mg HS JOSUE Administration Diphenhydramine HCl 50 mg 07/07/16 13:54 Benadryl - PO HSMR1 PRN INSOMNIA Emtricitabine/Tenofovir 1 tab 07/07/16 22:00 07/26/16 21:55 Truvada PO 1 tab HS JOSUE Administration Eucalyptus/Menthol/Phenol/Sorbitol 1 each 07/07/16 13:54 Cepastat Lozenge - MM Q4H PRN SORE THROAT Guaifenesin 10 ml 07/07/16 13:54 Robitussin Dm - PO Q6H PRN COUGH Hydrocortisone 1 applic 07/08/16 14:27 07/22/16 10:48 Hytone 1% Cream - TP 1 applic BID PRN Administration rash Hydroxyzine Pamoate 25 mg 07/07/16 13:54 Vistaril - PO Q4H PRN AGITATION Ibuprofen 400 mg 07/07/16 13:54 07/10/16 19:00 Motrin - PO 400 mg Q6H PRN Administration SEVERE PAIN Ketoconazole 1 applic 07/08/16 14:27 07/22/16 10:49 Nizoral 2% Cream - TP 1 applic BID PRN Administration rash Lactic Acid 1 applic 07/08/16 14:22 07/15/16 21:57 Lac-Hydrin 12 TP 1 applic BID PRN Administration DRY SKIN Loperamide HCl 4 mg 07/07/16 13:54 Imodium - PO Q6H PRN DIARRHEA Magnesium Citrate 300 ml 07/07/16 13:54 Citroma - PO Q48H PRN CONSTIPATION Magnesium Hydroxide 30 ml 07/07/16 13:54 07/14/16 18:00 Milk Of Magnesia - PO 30 ml DAILY PRN Administration CONSTIPATION Nicotine 14 mg 07/07/16 14:40 07/26/16 10:25 Nicoderm Patch - TD Not Given DAILY JOSUE Nicotine Polacrilex 2 mg 07/07/16 13:54 Nicorette Gum - BUC Q2H PRN NICOTINE REPLACEMENT RX Multivit/Folic Acid/Iron 1 tab 07/08/16 10:00 07/26/16 10:25 Vitamins (Sjr) - PO 1 tab DAILY JOSUE Administration Pseudoephedrine/Triprolidine 1 combo 07/07/16 13:54 07/24/16 21:46 Actifed - PO 1 combo TID PRN Administration NASAL CONGESTION Raltegravir 800 mg 07/07/16 22:00 07/26/16 21:54 Isentress - PO 800 mg HS JOSUE Administration Ritonavir 100 mg 07/07/16 22:00 07/26/16 21:54 Norvir - PO 100 mg HS JOSUE Administration Simethicone 80 mg 07/19/16 07:32 07/22/16 10:45 Mylicon - PO 80 mg Q6H PRN Administration GAS Thiamine HCl 100 mg 07/07/16 22:00 07/26/16 21:54 Vitamin B1 - PO 100 mg HS JOSUE Administration Triamcinolone Acetonide 1 applic 07/08/16 14:27 07/22/16 10:46 Aristocort 0.025% Ointment - TP 1 applic BID PRN Administration rash Current Side Effect: No Lab tests ordered: No Lab tests reviewed: Yes Provider note:: Patient comleted this program today.She has met her treatment goals and will continue to address her issues on outpatient basis. at [facility] (HIV).She will attend [facility] for her Mental Health and [facility] in [facility].Patient identifies javon of difficulties and ways ,behaviors she can utilize to maintain recovery. Patient is stable for discharge today. Total face to face time:: 30 Mental Status Exam - Mental Status Exam Alert and Oriented to: Time, Place, Person Cognitive Function: Grossly Intact Patient Appearance: Well Groomed Mood: Euthymic Affect: Mood Congruent Patient Behavior: Cooperative Speech Pattern: Clear Voice Loudness: Normal Thought Process: Goal Oriented Thought Disorder: Not Present Hallucinations: Denies Suicidal Ideation: Denies Homicidal Ideation: Denies Insight/Judgement: Fair Sleep: Fair Appetite: Fair Muscle strength/Tone: Normal Gait/Station: Normal Psychiatric Treatment Plan - Problem List (1) Eczema Qualifiers: Eczema type: other Qualified Code(s): L30.8 - Other specified dermatitis (3) Asthma Qualifiers: Asthma severity: mild intermittent Asthma complication type: uncomplicated Qualified Code(s): J45.20 - Mild intermittent asthma, uncomplicated (5) GERD (gastroesophageal reflux disease) Qualifiers: Esophagitis presence: without esophagitis Qualified Code(s): K21.9 - Gastro-esophageal reflux disease without esophagitis
== END 2016-07-27 10:25 | disposition home or self-care (01) | DRG 772 ==
LOC: YASAS 10:41 → Y3E 13:35
PROVIDERS: ADMIT Psychiatry & Neurology Psychiatry; ATTEND Psychiatry & Neurology Psychiatry
PROC: HZ42ZZZ Group Counseling for Substance Abuse Treatment, Cognitive-Behavioral (ICD-10-PCS; principal; 2016-07-07)
DX: F10.20 Alcohol dependence, uncomplicated (principal); F14.20 Cocaine dependence, uncomplicated; F17.210 Nicotine dependence, cigarettes, uncomplicated; F19.24 Other psychoactive substance dependence with psychoactive substance-induced mood disorder; J45.20 Mild intermittent asthma, uncomplicated; J44.9 Chronic obstructive pulmonary disease, unspecified; Z21 Asymptomatic human immunodeficiency virus [HIV] infection status; K21.9 Gastro-esophageal reflux disease without esophagitis; L30.8 Other specified dermatitis; Z87.440 Personal history of urinary (tract) infections; R26.2 Difficulty in walking, not elsewhere classified; Z99.89 Dependence on other enabling machines and devices
CPT/HCPCS: 36415; 80053; 81003; 81015; 85027; 85660; 86593; 93005; 93010

== ENCOUNTER 2020-11-11 09:46 | Inpatient (IN) | payer OTHER ==
[2020-11-11 10:34] VITALS: BMI 20.4
[2020-11-11] MEDS ORDERED: MAGNESIUM HYDROX 2400MG/30ML ORAL SUSPENSION 30 ML CUP PO PRN (16:27)
[2020-11-11] MEDS ORDERED: IBUPROFEN 400 MG TABLET (FP) PO PRN (16:27)
[2020-11-11] MEDS ORDERED: MAG HYDROX/AL HYDROX/SIMETH 30 ML UNIT-DOSE CUP PO PRN (16:27)
[2020-11-11] MEDS ORDERED: LOPERAMIDE HCL 2 MG CAPSULE PO PRN (16:27)
[2020-11-11] MEDS ORDERED: P-EPHED 60MG/TRIPROLIDI 2.5MG TABLET PO PRN (16:27)
[2020-11-11] MEDS ORDERED: guaiFENesin 200 MG/10 ML 10 ML UNIT-DOSE CUPS PO PRN (16:27)
[2020-11-11] MEDS ORDERED: ACETAMINOPHEN 325 MG TABLET (FP) PO PRN (16:27)
[2020-11-11] MEDS ORDERED: MAGNESIUM CITRATE 300 ML BOTTLE PO PRN (16:27)
[2020-11-11] MEDS: PRENATAL VITAMINS W/ FOLIC ACID TABLET (FP) PO SCH (18:55)
[2020-11-11] MEDS: hydrOXYzine PAMOATE 25 MG CAPSULE (FP) PO SCH ×2 (18:55→22:47)
[2020-11-11] MEDS: MELATONIN 5 MG TABLETS PO SCH (22:47)
[2020-11-11] MEDS: THIAMINE HCL 100 MG TABLET (FP) PO SCH (22:47)
[2020-11-12] MEDS: hydrOXYzine PAMOATE 25 MG CAPSULE (FP) PO SCH ×5 (06:29→22:28)
[2020-11-12] MEDS: PRENATAL VITAMINS W/ FOLIC ACID TABLET (FP) PO SCH (09:38)
[2020-11-12 10:52] LABS: HEMATOCRIT 21.2 % (32.4-45.2); MCH 24.1 pg (25.7-33.7); MCHC 32.3 g/dl (32.0-36.0); MEAN CELL VOLUME 74.5 fl (80-96); MEAN PLT VOLUME 9.5 fl (7.5-11.1); PLATELET COUNT 112 10^3/uL (134-434); RBC 2.85 M/mm3 (3.60-5.2)
[2020-11-12 10:54] LABS: HEMOGLOBIN 6.9 GM/dL (10.7-15.3); WHITE BLOOD COUNT 1.5 K/mm3 (4.0-10.0)
[2020-11-12 11:10] LABS: ALBUMIN 2.9 g/dl (3.4-5.0); BLOOD UREA NITROGEN 25.2 mg/dL (7-18)
[2020-11-12 11:13] LABS: BILIRUBIN,TOTAL 0.3 mg/dL (0.2-1); CREATININE 1.5 mg/dL (0.55-1.3)
[2020-11-12] MEDS: BUDESONIDE/FORMETEROL FUMARATE 160/4.5 mcg INHALER IH SCH ×2 (11:23→22:24)
[2020-11-12] MEDS: ARTIFICIAL TEARS (POLYVINYL ALCOHOL) OPTH DROPS OU PRN (11:28)
[2020-11-12 12:59] LABS: HIV INTERPRETATION PRESUMPTIVE POSITIVE (NEGATIVE)
[2020-11-12] MEDS ORDERED: TIOTROPIUM BROMIDE 2.5 MCG (SPIRIVA) RESPIMAT INHALER IH SCH (14:00)
[2020-11-12] MEDS ORDERED: FAMOTIDINE 20 MG TABLET PO SCH (14:00)
[2020-11-12] MEDS: ASPIRIN 81 MG CHEWABLE TABLETS PO SCH (15:05)
[2020-11-12] MEDS: ALBUTEROL SO4 HFA INHALER IH SCH ×2 (15:06→22:28)
[2020-11-12] MEDS: SULFAMETHOXAZOLE/TMP 200MG-40MG/5ML PO SCH (15:15)
[2020-11-12] MEDS ORDERED: PT OWN MED DRAWER 7, Y5N ONE (20:43)
[2020-11-12] MEDS: THIAMINE HCL 100 MG TABLET (FP) PO SCH (22:24)
[2020-11-12] MEDS: FERROUS SO4 300 MG/5 ML ORAL SOLN UNIT DOSE CUPS PO SCH (22:27)
[2020-11-12] MEDS: MELATONIN 5 MG TABLETS PO SCH (22:27)
[2020-11-13] MEDS: ALBUTEROL SO4 HFA INHALER IH SCH ×4 (01:12→19:00)
[2020-11-13] MEDS ORDERED: PT OWN MED DRAWER 7, Y5N ONE ×3 (02:56→20:51)
[2020-11-13] MEDS: hydrOXYzine PAMOATE 25 MG CAPSULE (FP) PO SCH ×5 (06:28→22:33)
[2020-11-13] MEDS: FERROUS SO4 300 MG/5 ML ORAL SOLN UNIT DOSE CUPS PO SCH ×3 (07:17→17:30)
[2020-11-13] MEDS: PRENATAL VITAMINS W/ FOLIC ACID TABLET (FP) PO SCH (09:57)
[2020-11-13] MEDS: ASPIRIN 81 MG CHEWABLE TABLETS PO SCH (09:57)
[2020-11-13] MEDS: BUDESONIDE/FORMETEROL FUMARATE 160/4.5 mcg INHALER IH SCH ×2 (09:58→22:33)
[2020-11-13] MEDS ORDERED: AZITHROMYCIN 600 MG TABLET PO SCH (10:00)
[2020-11-13] MEDS: NON-FORMULARY MED IH SCH (11:29)
[2020-11-13] MEDS ORDERED: AZITHROMYCIN 200 MG/5 ML BOTTLE PO SCH ×2 (12:03→13:00)
[2020-11-13] MEDS: SULFAMETHOXAZOLE/TMP 200MG-40MG/5ML PO SCH (15:31)
[2020-11-13] MEDS: THIAMINE HCL 100 MG TABLET (FP) PO SCH (22:32)
[2020-11-13] MEDS: MELATONIN 5 MG TABLETS PO SCH (22:33)
[2020-11-14] MEDS: ALBUTEROL SO4 HFA INHALER IH SCH ×4 (02:59→22:58)
[2020-11-14] MEDS ORDERED: PT OWN MED DRAWER 7, Y5N ONE ×4 (03:19→20:05)
[2020-11-14] MEDS: hydrOXYzine PAMOATE 25 MG CAPSULE (FP) PO SCH ×5 (06:44→22:58)
[2020-11-14] MEDS: FERROUS SO4 300 MG/5 ML ORAL SOLN UNIT DOSE CUPS PO SCH ×3 (07:37→17:33)
[2020-11-14] MEDS: ASPIRIN 81 MG CHEWABLE TABLETS PO SCH (10:03)
[2020-11-14] MEDS: ARTIFICIAL TEARS (POLYVINYL ALCOHOL) OPTH DROPS OU PRN (10:03)
[2020-11-14] MEDS: SULFAMETHOXAZOLE/TMP 200MG-40MG/5ML PO SCH (10:03)
[2020-11-14] MEDS: BUDESONIDE/FORMETEROL FUMARATE 160/4.5 mcg INHALER IH SCH ×2 (10:04→22:58)
[2020-11-14] MEDS: NON-FORMULARY MED IH SCH (10:04)
[2020-11-14] MEDS: PRENATAL VITAMINS W/ FOLIC ACID TABLET (FP) PO SCH (10:05)
[2020-11-14 12:20] LABS: EPI CELLS 27 /uL (0-25.1); HYALINE CASTS 1 /uL (0-3.1); URINE APPEARANCE CLEAR; URINE BACTERIA 72 /uL (0-1359); URINE BILIRUBIN NEGATIVE (NEGATIVE); URINE COLOR YELLOW; URINE GLUCOSE (UA) NEGATIVE (NEGATIVE); URINE KETONE NEGATIVE (NEGATIVE); URINE LEUK ESTERASE NEGATIVE (NEGATIVE); URINE NITRITE NEGATIVE (NEGATIVE); URINE PROTEIN 2+ (NEGATIVE); URINE RBC 3 /uL (0-23.9); URINE UROBILINOGEN 0.2 mg/dL (0.2-1.0); URINE WBC 20 /uL (0-25.8)
[2020-11-14] MEDS: METHOCARBAMOL 500 MG TABLET PO PRN (14:22)
[2020-11-14] MEDS: MELATONIN 5 MG TABLETS PO SCH (22:58)
[2020-11-14] MEDS: THIAMINE HCL 100 MG TABLET (FP) PO SCH (22:58)
[2020-11-15] MEDS: hydrOXYzine PAMOATE 25 MG CAPSULE (FP) PO SCH ×4 (07:21→17:11)
[2020-11-15] MEDS: ALBUTEROL SO4 HFA INHALER IH SCH ×3 (07:21→13:00)
[2020-11-15] MEDS: FERROUS SO4 300 MG/5 ML ORAL SOLN UNIT DOSE CUPS PO SCH ×3 (09:00→17:11)
[2020-11-15] MEDS: ASPIRIN 81 MG CHEWABLE TABLETS PO SCH (09:31)
[2020-11-15] MEDS: SULFAMETHOXAZOLE/TMP 200MG-40MG/5ML PO SCH (09:31)
[2020-11-15] MEDS: NON-FORMULARY MED IH SCH (09:32)
[2020-11-15] MEDS: PRENATAL VITAMINS W/ FOLIC ACID TABLET (FP) PO SCH (09:33)
[2020-11-15] MEDS: BUDESONIDE/FORMETEROL FUMARATE 160/4.5 mcg INHALER IH SCH (09:33)
[2020-11-15] MEDS: METHOCARBAMOL 500 MG TABLET PO PRN (09:36)
[2020-11-15] MEDS ORDERED: FAMOTIDINE 20 MG TABLET PO SCH ×3 (13:00→13:30)
[2020-11-15 13:02] VITALS: BP 114/70; PULSE 95; TEMP 97.8
[2020-11-16] MEDS: ALBUTEROL SO4 HFA INHALER IH SCH ×2 (00:11→07:08)
[2020-11-16] MEDS: MELATONIN 5 MG TABLETS PO SCH (00:11)
[2020-11-16] MEDS: THIAMINE HCL 100 MG TABLET (FP) PO SCH (00:12)
[2020-11-16] MEDS: hydrOXYzine PAMOATE 25 MG CAPSULE (FP) PO SCH ×2 (00:12→07:08)
[2020-11-16] MEDS: BUDESONIDE/FORMETEROL FUMARATE 160/4.5 mcg INHALER IH SCH (00:12)
== END 2020-11-16 07:44 | disposition short-term general hospital (02) | DRG 772 ==
LOC: YASAS 09:46 → Y5N 15:51
PROVIDERS: ADMIT Allergy & Immunology; ATTEND Allergy & Immunology
PROC: HZ42ZZZ Group Counseling for Substance Abuse Treatment, Cognitive-Behavioral (ICD-10-PCS; principal; 2020-11-11)
DX: F10.20 Alcohol dependence, uncomplicated (principal); F14.20 Cocaine dependence, uncomplicated; F31.9 Bipolar disorder, unspecified; F41.0 Panic disorder [episodic paroxysmal anxiety]; B20 Human immunodeficiency virus [HIV] disease; D61.818 Other pancytopenia; J44.9 Chronic obstructive pulmonary disease, unspecified; E78.5 Hyperlipidemia, unspecified; K21.9 Gastro-esophageal reflux disease without esophagitis; L30.9 Dermatitis, unspecified; R07.89 Other chest pain; R94.31 Abnormal electrocardiogram [ECG] [EKG]; Z86.2 Personal history of diseases of the blood and blood-forming organs and certain disorders involving the immune mechanism; Z99.89 Dependence on other enabling machines and devices; Z88.8 Allergy status to other drugs, medicaments and biological substances
CPT/HCPCS: 36415; 71046-TC-FY; 80053; 81003; 85027; 86593; 86780; 87389; 93005; 93010; C9803; U0003; U0005

== ENCOUNTER 2020-11-15 13:43 | Inpatient (IN) | payer OTHER ==
[2020-11-15] MEDS ORDERED: SODIUM CHLORIDE IV ONE (14:34)
[2020-11-15] MEDS ORDERED: LIDOCAINE 5% TOPICAL PATCH TP ONE (14:37)
[2020-11-15] MEDS ORDERED: ACETAMINOPHEN 1000 MG/100 ML VIAL (NON FORMULARY) IVPB ONE (14:37)
[2020-11-15] MEDS ORDERED: ACETAMINOPHEN INJECTION 100 ML IVPB ONE (14:44)
[2020-11-15] MEDS ORDERED: LIDOCAINE 5% TOPICAL PATCH ONE (15:07)
[2020-11-15 15:49] LABS: EOS % 4.3 % (0-4.5); LYMPH % 9.8 % (8-40); MCH 23.5 pg (25.7-33.7); MCHC 32.1 g/dl (32.0-36.0); MEAN CELL VOLUME 73.1 fl (80-96); MEAN PLT VOLUME 10.3 fl (7.5-11.1); MONO % 10.9 % (3.8-10.2); PLATELET COUNT 108 10^3/uL (134-434); RBC 2.87 M/mm3 (3.60-5.2); RDW 16.5 % (11.6-15.6); WHITE BLOOD COUNT 2.8 K/mm3 (4.0-10.0)
[2020-11-15 15:57] LABS: INR 0.88 (0.83-1.09); PROTHROMBIN TIME (PATIENT) 10.9 SEC (9.7-13.0)
[2020-11-15 15:59] LABS: ACTIVATED PTT 37.2 SECONDS (25.2-36.5)
[2020-11-15 16:03] LABS: HEMOGLOBIN 6.7 GM/dL (10.7-15.3)
[2020-11-15 16:05] LABS: CHLORIDE 106 mmol/L (98-107); SODIUM 135 mmol/L (136-145)
[2020-11-15 16:07] LABS: BLOOD UREA NITROGEN 25.9 mg/dL (7-18); CALCIUM 8.2 mg/dL (8.5-10.1)
[2020-11-15 16:08] LABS: ALBUMIN 3.1 g/dl (3.4-5.0); ANION GAP 6 MMOL/L (8-16); CO2 23 mmol/L (21-32); GLUCOSE,RANDOM 81 mg/dL (74-106)
[2020-11-15 16:11] LABS: CREATININE 1.6 mg/dL (0.55-1.3); SGOT/AST 27 U/L (15-37); SGPT/ALT 18 U/L (13-61)
[2020-11-15 16:12] LABS: BILIRUBIN,TOTAL 0.2 mg/dL (0.2-1); TOT PROT 8.6 g/dl (6.4-8.2)
[2020-11-15 16:14] LABS: ALK PHOS 81 U/L (45-117)
[2020-11-15] MEDS ORDERED: CEFTRIAXONE 1 GM in DEXTROSE 5%-WATER - 50 ML IVPB ONE (16:14)
[2020-11-15] MEDS ORDERED: AZITHROMYCIN IVPB 500 MG in DEXTROSE 5%-WATER - 250 ML IVPB ONE (16:21)
[2020-11-15 16:25] LABS: EPI CELLS 11 /uL (0-25.1); HYALINE CASTS 1 /uL (0-3.1); PH,URINE 6.5 (5.0-8.0); URINE APPEARANCE CLEAR; URINE BACTERIA 28 /uL (0-1359); URINE BILIRUBIN NEGATIVE (NEGATIVE); URINE COLOR YELLOW; URINE GLUCOSE (UA) NEGATIVE (NEGATIVE); URINE KETONE NEGATIVE (NEGATIVE); URINE LEUK ESTERASE NEGATIVE (NEGATIVE); URINE NITRITE NEGATIVE (NEGATIVE); URINE PROTEIN 3+ (NEGATIVE); URINE RBC 3 /uL (0-23.9); URINE UROBILINOGEN 0.2 mg/dL (0.2-1.0); URINE WBC 8 /uL (0-25.8)
[2020-11-15 16:34] LABS: PLATELET ESTIMATE DECREASED
[2020-11-15] MEDS ORDERED: CEFTRIAXONE 1 GM/50 ML BAG ONE (16:44)
[2020-11-15] MEDS ORDERED: AZITHROMYCIN IVPB 500 MG/250 ML BAG IVPB ONE (17:16)
[2020-11-15] MEDS ORDERED: ACETAMINOPHEN 325 MG TABLET (FP) PO PRN (18:09)
[2020-11-15] MEDS ORDERED: CEFEPIME IVPB SCH (18:15)
[2020-11-15] MEDS ORDERED: VANCOMYCIN 1 GM in D5W (PRE-DOCKED) 1,000 MG/250 ML IVPB SCH ×2 (18:15→18:30)
[2020-11-15] MEDS ORDERED: DEXTROSE 5% IVPB SCH (18:15)
[2020-11-15] MEDS ORDERED: WATER IVPB SCH (18:15)
[2020-11-15] MEDS ORDERED: ALBUTEROL SO4 HFA INHALER IH ONE (20:03)
[2020-11-15] MEDS ORDERED: VANCOMYCIN 1 GRAM (PRE-DOCKED) 1,000 MG/250 ML BAG IVPB ONE (20:03)
[2020-11-15] MEDS: ALBUTEROL SO4 HFA INHALER IH SCH (20:34)
[2020-11-15] MEDS ORDERED: LIDOCAINE PATCH REMOVAL MC ONE (22:00)
[2020-11-15] MEDS: BUDESONIDE/FORMETEROL FUMARATE 160/4.5 mcg INHALER IH SCH (23:30)
[2020-11-16] MEDS: ALBUTEROL SO4 HFA INHALER IH SCH ×4 (01:00→21:13)
[2020-11-16] MEDS ORDERED: CEFEPIME HCL 1 GM VIAL (RESTRICTED TO ID) ONE ×2 (07:57→18:51)
[2020-11-16] MEDS ORDERED: DEXTROSE 5%-WATER 100 ML IVPB ONE ×2 (07:57→18:52)
[2020-11-16] MEDS: WATER IVPB SCH ×2 (08:02→18:57)
[2020-11-16] MEDS: CEFEPIME IVPB SCH ×2 (08:02→18:57)
[2020-11-16] MEDS: DEXTROSE 5% IVPB SCH ×2 (08:02→18:57)
[2020-11-16 10:00] LABS: HEMATOCRIT 23.5 % (32.4-45.2); HEMOGLOBIN 7.6 GM/dL (10.7-15.3); MCH 24.2 pg (25.7-33.7); MCHC 32.4 g/dl (32.0-36.0); MEAN CELL VOLUME 74.6 fl (80-96); MEAN PLT VOLUME 9.9 fl (7.5-11.1); PLATELET COUNT 79 10^3/uL (134-434); RBC 3.14 M/mm3 (3.60-5.2); RDW 16.5 % (11.6-15.6); RETICULOCYTES 0.63 % (0.5-1.5)
[2020-11-16] MEDS ORDERED: SULFAMETHOXAZOLE/TMP 200MG-40MG/5ML PO SCH (10:00)
[2020-11-16 10:17] LABS: MAGNESIUM 1.8 mg/dL (1.8-2.4)
[2020-11-16 10:18] LABS: CALCIUM 7.8 mg/dL (8.5-10.1)
[2020-11-16 10:19] LABS: ALBUMIN 2.8 g/dl (3.4-5.0); BLOOD UREA NITROGEN 19.8 mg/dL (7-18)
[2020-11-16 10:21] LABS: CREATININE 1.4 mg/dL (0.55-1.3)
[2020-11-16 10:24] LABS: BILIRUBIN,TOTAL 0.3 mg/dL (0.2-1); TOT PROT 7.6 g/dl (6.4-8.2)
[2020-11-16 10:38] LABS: WHITE BLOOD COUNT 1.8 K/mm3 (4.0-10.0)
[2020-11-16] MEDS ORDERED: PT OWN MED DRAWER 7, Y5N ONE (10:44)
[2020-11-16] MEDS: ROSUVASTATIN CA 20 MG TABLET (FP) PO SCH (10:49)
[2020-11-16] MEDS: BUDESONIDE/FORMETEROL FUMARATE 160/4.5 mcg INHALER IH SCH ×2 (10:49→21:20)
[2020-11-16 11:09] LABS: ANISOCYTOSIS 3+; MACROCYTOSIS 0; OVALOCYTE 1+; PLATELET ESTIMATE DECREASED; TEAR DROP CELLS 1+
[2020-11-17] MEDS: ALBUTEROL SO4 HFA INHALER IH SCH ×5 (00:44→23:11)
[2020-11-17] MEDS: WATER IVPB SCH ×5 (01:29→18:10)
[2020-11-17] MEDS: DEXTROSE 5% IVPB SCH ×5 (01:29→18:10)
[2020-11-17] MEDS: CEFEPIME IVPB SCH ×5 (01:29→18:10)
[2020-11-17] MEDS ORDERED: CEFEPIME HCL 1 GM VIAL (RESTRICTED TO ID) ONE ×2 (05:28→17:47)
[2020-11-17] MEDS ORDERED: DEXTROSE 5%-WATER 100 ML IVPB ONE ×2 (05:29→17:47)
[2020-11-17] MEDS ORDERED: PT OWN MED DRAWER 7, Y5N ONE ×2 (09:45→18:04)
[2020-11-17] MEDS: ATOVAQUONE 750 MG/5 ML (UNIT-DOSE PACKAGING) PO SCH (10:04)
[2020-11-17] MEDS: ROSUVASTATIN CA 20 MG TABLET (FP) PO SCH (10:06)
[2020-11-17] MEDS: BUDESONIDE/FORMETEROL FUMARATE 160/4.5 mcg INHALER IH SCH ×2 (10:06→21:01)
[2020-11-17 11:39] VITALS: BMI 23.5
[2020-11-17 19:56] LABS: HEMATOCRIT 24.5 % (32.4-45.2); MCH 24.4 pg (25.7-33.7); MCHC 32.8 g/dl (32.0-36.0); MEAN CELL VOLUME 74.4 fl (80-96); PLATELET COUNT 103 10^3/uL (134-434); RBC 3.29 M/mm3 (3.60-5.2); RDW 16.6 % (11.6-15.6)
[2020-11-17 20:10] LABS: WHITE BLOOD COUNT 1.8 K/mm3 (4.0-10.0)
[2020-11-17 20:31] LABS: ALBUMIN 2.8 g/dl (3.4-5.0); BLOOD UREA NITROGEN 24.4 mg/dL (7-18); CALCIUM 7.9 mg/dL (8.5-10.1)
[2020-11-17 20:35] LABS: CREATININE 1.5 mg/dL (0.55-1.3)
[2020-11-17 20:36] LABS: TOT PROT 7.6 g/dl (6.4-8.2)
[2020-11-17 20:47] LABS: BILIRUBIN,TOTAL 0.3 mg/dL (0.2-1)
[2020-11-18] MEDS ORDERED: DEXTROSE 5%-WATER 100 ML IVPB ONE ×2 (05:18→17:23)
[2020-11-18] MEDS ORDERED: CEFEPIME HCL 1 GM VIAL (RESTRICTED TO ID) ONE ×2 (05:18→17:23)
[2020-11-18] MEDS: WATER IVPB SCH ×2 (06:09→18:42)
[2020-11-18] MEDS: DEXTROSE 5% IVPB SCH ×2 (06:09→18:42)
[2020-11-18] MEDS: CEFEPIME IVPB SCH ×2 (06:09→18:42)
[2020-11-18] MEDS: ALBUTEROL SO4 HFA INHALER IH SCH ×3 (06:12→18:17)
[2020-11-18 08:59] LABS: BASO % 1.1 % (0-2.0); EOS % 9.8 % (0-4.5); HEMATOCRIT 25.4 % (32.4-45.2); HEMOGLOBIN 8.3 GM/dL (10.7-15.3); LYMPH % 12.6 % (8-40); MCH 24.2 pg (25.7-33.7); MCHC 32.7 g/dl (32.0-36.0); MEAN PLT VOLUME 10.5 fl (7.5-11.1); MONO % 19.3 % (3.8-10.2); NEUT % 57.2 % (42.8-82.8); PLATELET COUNT 109 10^3/uL (134-434); RBC 3.43 M/mm3 (3.60-5.2); RDW 16.5 % (11.6-15.6)
[2020-11-18 09:06] LABS: WHITE BLOOD COUNT 1.4 K/mm3 (4.0-10.0)
[2020-11-18] MEDS ORDERED: PT OWN MED DRAWER 7, Y5N ONE ×2 (09:37→09:55)
[2020-11-18] MEDS ORDERED: MAGNESIUM 2GM/50ML STERILE WATER IVPB IVPB ONE (09:45)
[2020-11-18] MEDS: ATOVAQUONE 750 MG/5 ML (UNIT-DOSE PACKAGING) PO SCH (09:47)
[2020-11-18] MEDS: ROSUVASTATIN CA 20 MG TABLET (FP) PO SCH (09:48)
[2020-11-18 10:04] LABS: ANISOCYTOSIS 2+; MACROCYTOSIS 0; OVALOCYTE 2+; PLATELET ESTIMATE DECREASED; TEAR DROP CELLS 1+
[2020-11-18 10:20] LABS: CHLORIDE 108 mmol/L (98-107); SODIUM 137 mmol/L (136-145)
[2020-11-18] MEDS: BUDESONIDE/FORMETEROL FUMARATE 160/4.5 mcg INHALER IH SCH ×2 (10:54→21:18)
[2020-11-18 11:12] LABS: ANION GAP 7 MMOL/L (8-16); CO2 21 mmol/L (21-32)
[2020-11-18 11:14] LABS: CALCIUM 8.2 mg/dL (8.5-10.1)
[2020-11-18 11:15] LABS: ALBUMIN 2.9 g/dl (3.4-5.0); GLUCOSE,RANDOM 82 mg/dL (74-106)
[2020-11-18 11:16] LABS: BLOOD UREA NITROGEN 22.2 mg/dL (7-18)
[2020-11-18 11:17] LABS: CREATININE 1.3 mg/dL (0.55-1.3)
[2020-11-18 11:18] LABS: PHOSPHOROUS 3.2 mg/dL (2.5-4.9); SGOT/AST 26 U/L (15-37); SGPT/ALT 18 U/L (13-61)
[2020-11-18 11:19] LABS: ALK PHOS 76 U/L (45-117)
[2020-11-18 11:21] LABS: BILIRUBIN,TOTAL 0.3 mg/dL (0.2-1)
[2020-11-18] MEDS: BENZOCAINE/MENTH/CETYLPYRD CL 1 EACH LOZENGE MM PRN (13:37)
[2020-11-19] MEDS: ALBUTEROL SO4 HFA INHALER IH SCH ×4 (00:24→18:42)
[2020-11-19] MEDS ORDERED: CEFEPIME HCL 1 GM VIAL (RESTRICTED TO ID) ONE ×2 (05:25→18:30)
[2020-11-19] MEDS ORDERED: DEXTROSE 5%-WATER 100 ML IVPB ONE ×2 (05:26→18:30)
[2020-11-19] MEDS: CEFEPIME IVPB SCH ×2 (06:00→18:36)
[2020-11-19] MEDS: WATER IVPB SCH ×2 (06:00→18:36)
[2020-11-19] MEDS: DEXTROSE 5% IVPB SCH ×2 (06:00→18:36)
[2020-11-19 08:50] LABS: HEMATOCRIT 25.8 % (32.4-45.2); HEMOGLOBIN 8.3 GM/dL (10.7-15.3); MCH 24.1 pg (25.7-33.7); MCHC 32.3 g/dl (32.0-36.0); MEAN CELL VOLUME 74.6 fl (80-96); MEAN PLT VOLUME 9.6 fl (7.5-11.1); PLATELET COUNT 95 10^3/uL (134-434); RBC 3.46 M/mm3 (3.60-5.2); RDW 16.8 % (11.6-15.6)
[2020-11-19] MEDS ORDERED: PT OWN MED DRAWER 7, Y5N ONE (09:03)
[2020-11-19] MEDS: ROSUVASTATIN CA 20 MG TABLET (FP) PO SCH (09:06)
[2020-11-19] MEDS: BUDESONIDE/FORMETEROL FUMARATE 160/4.5 mcg INHALER IH SCH ×2 (09:06→22:50)
[2020-11-19] MEDS: BICTEGRAV/EMTRICIT/TENOFOV (BIKTARVY) 50-200-25 MG TABLET PO SCH (09:06)
[2020-11-19] MEDS: ATOVAQUONE 750 MG/5 ML (UNIT-DOSE PACKAGING) PO SCH (09:06)
[2020-11-19 09:21] LABS: BLOOD UREA NITROGEN 23.2 mg/dL (7-18); CALCIUM 7.9 mg/dL (8.5-10.1)
[2020-11-19 09:22] LABS: MAGNESIUM 2.1 mg/dL (1.8-2.4)
[2020-11-19 09:23] LABS: BILIRUBIN,TOTAL 0.2 mg/dL (0.2-1); TOT PROT 8.2 g/dl (6.4-8.2)
[2020-11-19 09:24] LABS: CREATININE 1.3 mg/dL (0.55-1.3)
[2020-11-19 09:25] LABS: PHOSPHOROUS 3.6 mg/dL (2.5-4.9)
[2020-11-19 09:27] LABS: LDH 291 U/L (84-246)
[2020-11-19 12:09] LABS: ANISOCYTOSIS 1+; MACROCYTOSIS 0; OVALOCYTE 1+; PLATELET ESTIMATE DECREASED
[2020-11-19] MEDS: BENZOCAINE/MENTH/CETYLPYRD CL 1 EACH LOZENGE MM PRN (15:31)
[2020-11-20] MEDS: ALBUTEROL SO4 HFA INHALER IH SCH ×4 (02:27→18:19)
[2020-11-20] MEDS ORDERED: CEFEPIME HCL 1 GM VIAL (RESTRICTED TO ID) ONE ×2 (05:54→18:10)
[2020-11-20] MEDS ORDERED: DEXTROSE 5%-WATER 100 ML IVPB ONE ×2 (05:55→18:11)
[2020-11-20] MEDS: CEFEPIME IVPB SCH ×2 (07:16→18:18)
[2020-11-20] MEDS: DEXTROSE 5% IVPB SCH ×2 (07:16→18:18)
[2020-11-20] MEDS: WATER IVPB SCH ×2 (07:16→18:18)
[2020-11-20] MEDS ORDERED: PT OWN MED DRAWER 7, Y5N ONE ×3 (08:36→14:57)
[2020-11-20] MEDS: ATOVAQUONE 750 MG/5 ML (UNIT-DOSE PACKAGING) PO SCH (08:47)
[2020-11-20 09:37] LABS: HEMATOCRIT 26.7 % (32.4-45.2); HEMOGLOBIN 8.6 GM/dL (10.7-15.3); MCH 24.1 pg (25.7-33.7); MCHC 32.3 g/dl (32.0-36.0); MEAN CELL VOLUME 74.7 fl (80-96); MEAN PLT VOLUME 9.7 fl (7.5-11.1); PLATELET COUNT 87 10^3/uL (134-434); RBC 3.58 M/mm3 (3.60-5.2); RDW 16.9 % (11.6-15.6)
[2020-11-20 09:54] LABS: WHITE BLOOD COUNT 1.2 K/mm3 (4.0-10.0)
[2020-11-20] MEDS ORDERED: AZITHROMYCIN 600 MG TABLET PO SCH (10:00)
[2020-11-20] MEDS: ROSUVASTATIN CA 20 MG TABLET (FP) PO SCH (10:13)
[2020-11-20] MEDS: BUDESONIDE/FORMETEROL FUMARATE 160/4.5 mcg INHALER IH SCH ×2 (10:15→21:13)
[2020-11-20 10:18] LABS: ALBUMIN 3.1 g/dl (3.4-5.0)
[2020-11-20 10:19] LABS: BLOOD UREA NITROGEN 32.7 mg/dL (7-18); CALCIUM 8.5 mg/dL (8.5-10.1); MAGNESIUM 2.3 mg/dL (1.8-2.4)
[2020-11-20 10:23] LABS: CREATININE 1.6 mg/dL (0.55-1.3)
[2020-11-20 10:24] LABS: BILIRUBIN,TOTAL 0.3 mg/dL (0.2-1); TOT PROT 8.3 g/dl (6.4-8.2)
[2020-11-20 10:37] LABS: ANISOCYTOSIS 0; MACROCYTOSIS 0; PLATELET ESTIMATE DECREASED
[2020-11-20] MEDS: BICTEGRAV/EMTRICIT/TENOFOV (BIKTARVY) 50-200-25 MG TABLET PO SCH (14:58)
[2020-11-20] MEDS: SODIUM CHLORIDE 1,000 ML IV SCH (18:28)
[2020-11-20] MEDS: BENZOCAINE/MENTH/CETYLPYRD CL 1 EACH LOZENGE MM PRN (21:13)
[2020-11-21] MEDS: ALBUTEROL SO4 HFA INHALER IH SCH ×4 (03:39→18:24)
[2020-11-21] MEDS: DEXTROSE 5% IVPB SCH (06:04)
[2020-11-21] MEDS: WATER IVPB SCH (06:04)
[2020-11-21] MEDS: CEFEPIME IVPB SCH (06:04)
[2020-11-21] MEDS: SODIUM CHLORIDE 1,000 ML IV SCH ×2 (06:06→18:17)
[2020-11-21] MEDS ORDERED: PT OWN MED DRAWER 7, Y5N ONE ×2 (09:25→10:05)
[2020-11-21] MEDS: ATOVAQUONE 750 MG/5 ML (UNIT-DOSE PACKAGING) PO SCH (09:27)
[2020-11-21 09:34] LABS: HEMOGLOBIN 8.1 GM/dL (10.7-15.3); MCHC 32.4 g/dl (32.0-36.0); MEAN CELL VOLUME 74.1 fl (80-96); MEAN PLT VOLUME 8.7 fl (7.5-11.1); PLATELET COUNT 77 10^3/uL (134-434); RBC 3.37 M/mm3 (3.60-5.2); RDW 16.9 % (11.6-15.6)
[2020-11-21 09:41] LABS: WHITE BLOOD COUNT 1.2 K/mm3 (4.0-10.0)
[2020-11-21 09:52] LABS: BLOOD UREA NITROGEN 31.9 mg/dL (7-18)
[2020-11-21 09:55] LABS: CALCIUM 8.2 mg/dL (8.5-10.1); CREATININE 1.3 mg/dL (0.55-1.3)
[2020-11-21 09:56] LABS: PHOSPHOROUS 3.4 mg/dL (2.5-4.9)
[2020-11-21] MEDS: BICTEGRAV/EMTRICIT/TENOFOV (BIKTARVY) 50-200-25 MG TABLET PO SCH (10:07)
[2020-11-21] MEDS: ROSUVASTATIN CA 20 MG TABLET (FP) PO SCH (10:07)
[2020-11-21] MEDS: BUDESONIDE/FORMETEROL FUMARATE 160/4.5 mcg INHALER IH SCH ×2 (10:07→21:17)
[2020-11-21] MEDS ORDERED: CYANOCOBALAMIN (VITAMIN B-12) 1000 MCG/1 ML VIAL IM ONE (10:13)
[2020-11-21 10:23] LABS: ANISOCYTOSIS 2+; MACROCYTOSIS 1+
[2020-11-21 10:24] LABS: OVALOCYTE 1+
[2020-11-21] MEDS ORDERED: AZITHROMYCIN 200 MG/5 ML BOTTLE PO SCH (14:45)
[2020-11-21] MEDS ORDERED: AZITHROMYCIN 600 MG TABLET PO SCH ×2 (14:56→15:00)
[2020-11-22] MEDS: ALBUTEROL SO4 HFA INHALER IH SCH ×3 (02:38→12:14)
[2020-11-22] MEDS ORDERED: PT OWN MED DRAWER 7, Y5N ONE ×5 (08:26→15:16)
[2020-11-22] MEDS: ATOVAQUONE 750 MG/5 ML (UNIT-DOSE PACKAGING) PO SCH (08:29)
[2020-11-22 10:00] LABS: HEMATOCRIT 24.5 % (32.4-45.2); HEMOGLOBIN 8.1 GM/dL (10.7-15.3); MCH 24.4 pg (25.7-33.7); MCHC 33.1 g/dl (32.0-36.0); MEAN CELL VOLUME 73.7 fl (80-96); MEAN PLT VOLUME 9.2 fl (7.5-11.1); PLATELET COUNT 79 10^3/uL (134-434); RBC 3.33 M/mm3 (3.60-5.2); RDW 16.9 % (11.6-15.6)
[2020-11-22] MEDS ORDERED: ESCITALOPRAM OXALATE 10 MG TABLET PO SCH (10:00)
[2020-11-22 10:02] LABS: WHITE BLOOD COUNT 1.5 K/mm3 (4.0-10.0)
[2020-11-22 10:25] LABS: ALBUMIN 2.9 g/dl (3.4-5.0); BILIRUBIN,TOTAL 0.3 mg/dL (0.2-1); CALCIUM 8.6 mg/dL (8.5-10.1)
[2020-11-22 10:27] LABS: PHOSPHOROUS 4.1 mg/dL (2.5-4.9)
[2020-11-22 10:28] LABS: MAGNESIUM 2.1 mg/dL (1.8-2.4)
[2020-11-22 10:39] LABS: CREATININE 1.5 mg/dL (0.55-1.3); TOT PROT 9.4 g/dl (6.4-8.2)
[2020-11-22] MEDS: BICTEGRAV/EMTRICIT/TENOFOV (BIKTARVY) 50-200-25 MG TABLET PO SCH (11:03)
[2020-11-22] MEDS: ROSUVASTATIN CA 20 MG TABLET (FP) PO SCH (11:03)
[2020-11-22] MEDS: BUDESONIDE/FORMETEROL FUMARATE 160/4.5 mcg INHALER IH SCH (11:04)
[2020-11-22] MEDS ORDERED: TBO-FILGRASTIM 300 MCG/0.5 ML DISP.SYRINGE SQ ONE (13:45)
[2020-11-22 13:55] VITALS: TEMP 98.4
[2020-11-22 15:05] VITALS: BP 106/62; PULSE 73
[2020-11-24 12:11] LABS: METHYLMALONIC ACID- 335 nmol/L (0-378)
[2020-11-27] MEDS ORDERED: CYANOCOBALAMIN (VITAMIN B-12) 1000 MCG/1 ML VIAL IM SCH (10:00)
== END 2020-11-22 18:14 | disposition home or self-care (01) | DRG 890 ==
LOC: JER 13:43 → JERBED 16:45 → J8W 11-16 02:59
PROVIDERS: ADMIT Internal Medicine; ATTEND Internal Medicine
PROC: 30233N1 Transfusion of Nonautologous Red Blood Cells into Peripheral Vein, Percutaneous Approach (ICD-10-PCS; principal; 2020-11-15)
DX: A41.9 Sepsis, unspecified organism (principal); K21.9 Gastro-esophageal reflux disease without esophagitis; J44.9 Chronic obstructive pulmonary disease, unspecified; F10.10 Alcohol abuse, uncomplicated; F14.10 Cocaine abuse, uncomplicated; F17.210 Nicotine dependence, cigarettes, uncomplicated; B35.1 Tinea unguium; B20 Human immunodeficiency virus [HIV] disease; E43 Unspecified severe protein-calorie malnutrition; N17.9 Acute kidney failure, unspecified; R64 Cachexia; Z91.14 Patient's other noncompliance with medication regimen; D50.9 Iron deficiency anemia, unspecified; D70.9 Neutropenia, unspecified; R50.81 Fever presenting with conditions classified elsewhere; E78.5 Hyperlipidemia, unspecified; Z68.23 Body mass index [BMI] 23.0-23.9, adult
CPT/HCPCS: 36415; 36430; 71045-TC-FY; 71250-TC; 73660-TC-FY; 76705-TC; 76775-TC; 80048; 80051; 80053; 81003; 82272; 82436; 82607; 82668; 82728; 82746; 83540; 83550; 83605; 83615; 83735; 83921; 84100; 84133; 84300; 84439; 84443; 84484; 85025; 85027; 85045; 85610; 85651; 85730; 86140; 86359; 86360; 86850; 86900; 86901; 86922; 87040; 87070; 87077; 87086; 87116; 87205; 87497; 87899; 88300-TC; 93005; 93010; 97116-GP; 99285-25; C9803; J0131; J1447; P9058; U0003; U0005

== ENCOUNTER 2023-06-30 13:27 | Inpatient (IN) | payer OTHER ==
[2023-06-30 15:00] VITALS: BMI 18.0
[2023-06-30] MEDS ORDERED: POLYETHYLENE GLYCOL (HEALTHYLAX) 3350 17 GM PACKET PO PRN (16:04)
[2023-06-30] MEDS ORDERED: IBUPROFEN 400 MG TABLET (FP) PO PRN (16:04)
[2023-06-30] MEDS ORDERED: NALOXONE HCL (KLOXXADO) 8 MG SPRAY NS PRN (16:04)
[2023-06-30] MEDS ORDERED: MAGNESIUM HYDROX 2400MG/30ML ORAL SUSPENSION 30 ML CUP PO PRN (16:04)
[2023-06-30] MEDS ORDERED: NALOXONE HCL 0.4 MG/ML VIAL IM PRN (16:04)
[2023-06-30] MEDS ORDERED: MAG HYDROX/AL HYDROX/SIMETH 30 ML UNIT-DOSE CUP PO PRN (16:04)
[2023-06-30] MEDS ORDERED: BENZOCAINE/MENTHOL (CHLORASEPTIC ) LOZENGE MM PRN (16:04)
[2023-06-30] MEDS ORDERED: LOPERAMIDE HCL 2 MG CAPSULE PO PRN (16:04)
[2023-06-30] MEDS ORDERED: hydrOXYzine PAMOATE 25 MG CAPSULE (FP) PO PRN (16:04)
[2023-06-30] MEDS ORDERED: IBUPROFEN 600 MG TABLET (FP) PO PRN (16:04)
[2023-06-30] MEDS ORDERED: BENZONATATE 200 MG CAPSULE PO PRN (16:04)
[2023-06-30] MEDS ORDERED: guaiFENesin 600 MG TABLET.ER (FP) PO PRN (16:04)
[2023-06-30] MEDS: NICOTINE 14 MG/24 HOURS TOPICAL PATCH TD SCH (18:50)
[2023-06-30] MEDS: PRENATAL VITAMINS W/ FOLIC ACID TABLET (FP) PO SCH (18:50)
[2023-06-30] MEDS: MELATONIN 5 MG TABLETS PO SCH (22:25)
[2023-06-30] MEDS: THIAMINE HCL 100 MG TABLET (FP) PO SCH (22:25)
[2023-07-01 11:52] LABS: HEMATOCRIT 28.9 % (32.4-45.2); HEMOGLOBIN 8.7 GM/dL (10.7-15.3); MCH 22.6 pg (25.7-33.7); MCHC 30.2 g/dl (32.0-36.0); MEAN CELL VOLUME 74.7 fl (80-96); MEAN PLT VOLUME 10.1 fl (7.5-11.1); PLATELET COUNT 187 10^3/uL (134-434); RBC 3.87 M/mm3 (3.60-5.2); RDW 15.2 % (11.6-15.6); WHITE BLOOD COUNT 3.5 K/mm3 (4.0-10.0)
[2023-07-01 11:57] LABS: CHLORIDE 112 mmol/L (98-107); POTASSIUM 5.1 mmol/L (3.5-5.1); SODIUM 139 mmol/L (136-145)
[2023-07-01 11:59] LABS: CALCIUM 8.8 mg/dL (8.5-10.1)
[2023-07-01 12:00] LABS: ALBUMIN 2.4 g/dl (3.4-5.0); ANION GAP 7 mmol/L (4-13); BLOOD UREA NITROGEN 36.2 mg/dL (7-18); CO2 20 mmol/L (21-32); GLUCOSE,RANDOM 91 mg/dL (74-106)
[2023-07-01 12:03] LABS: CREATININE 1.8 mg/dL (0.55-1.3); SGOT/AST 22 U/L (15-37); SGPT/ALT 11 U/L (13-61)
[2023-07-01 12:05] LABS: BILIRUBIN,TOTAL 0.2 mg/dL (0.2-1); TOT PROT 8.7 g/dl (6.4-8.2)
[2023-07-01 12:06] LABS: ALK PHOS 88 U/L (45-117)
[2023-07-01] MEDS: ARTIFICIAL TEARS OPHTHALMIC DROPS OU SCH (18:15)
[2023-07-01] MEDS: BUDESONIDE/FORMETEROL FUMARATE 160/4.5 mcg INHALER IH SCH (22:36)
[2023-07-02] MEDS ORDERED: BUDESONIDE/FORMETEROL FUMARATE 160/4.5 mcg INHALER IH SCH (06:00)
[2023-07-02] MEDS: ATOVAQUONE 750 MG/5 ML (UNIT-DOSE PACKAGING) PO SCH (07:00)
[2023-07-02] MEDS: ALBUTEROL SO4 HFA INHALER IH SCH (07:00)
[2023-07-02] MEDS: ASPIRIN 81 MG CHEWABLE TABLETS PO SCH (07:00)
[2023-07-02] MEDS: BICTEGRAV/EMTRICIT/TENOFOV (BIKTARVY) 50-200-25 MG TABLET PO SCH (07:00)
[2023-07-02] MEDS: FAMOTIDINE 10 MG TABLET PO SCH (07:00)
[2023-07-02] MEDS: TIOTROPIUM BROMIDE 2.5 MCG (SPIRIVA) RESPIMAT INHALER IH SCH (07:00)
[2023-07-02] MEDS: ESCITALOPRAM OXALATE 10 MG TABLET PO SCH (07:00)
[2023-07-02] MEDS: AZITHROMYCIN 600 MG TABLET PO SCH (07:40)
[2023-07-02] MEDS: NIFEdipine E.R. 30 MG TABLET PO SCH (21:23)
[2023-07-02] MEDS: ROSUVASTATIN CA 10 MG TABLET PO SCH (21:23)
[2023-07-02] MEDS: DOLUTEGRAVIR SODIUM 50 MG TABLET (NON-FORMULARY) PO SCH (21:23)
[2023-07-02] MEDS: DARUNAVIR 800 MG/COBICISTAT 150MG TABLET PO SCH (21:24)
[2023-07-02] MEDS: BUDESONIDE/FORMETEROL FUMARATE 160/4.5 mcg INHALER IH SCH (21:27)
[2023-07-02] MEDS: ATORVASTATIN CA 20 MG TABLET (FP) PO SCH (22:30)
[2023-07-04] MEDS: DARUNAVIR 800 MG/COBICISTAT 150MG TABLET PO SCH (21:53)
[2023-07-04] MEDS: DOLUTEGRAVIR SODIUM 50 MG TABLET (NON-FORMULARY) PO SCH (21:56)
[2023-07-05 12:00] LABS: EPI CELLS 11 /uL (0-25.1); HYALINE CASTS 0 /uL (0-3.1); URINE APPEARANCE CLEAR; URINE BACTERIA 400 /uL (0-1359); URINE BILIRUBIN NEGATIVE (NEGATIVE); URINE COLOR YELLOW; URINE GLUCOSE (UA) NEGATIVE (NEGATIVE); URINE KETONE NEGATIVE (NEGATIVE); URINE LEUK ESTERASE TRACE (NEGATIVE); URINE NITRITE NEGATIVE (NEGATIVE); URINE PROTEIN 2+ (NEGATIVE); URINE RBC 12 /uL (0-23.9); URINE UROBILINOGEN 0.2 mg/dL (0.2-1.0); URINE WBC 147 /uL (0-25.8)
[2023-07-06 14:35] LABS: EPI CELLS 21 /uL (0-25.1); HYALINE CASTS 0 /uL (0-3.1); PH,URINE 5.5 (5.0-8.0); URINE APPEARANCE CLEAR; URINE BACTERIA 145 /uL (0-1359); URINE BILIRUBIN NEGATIVE (NEGATIVE); URINE COLOR YELLOW; URINE GLUCOSE (UA) NEGATIVE (NEGATIVE); URINE KETONE NEGATIVE (NEGATIVE); URINE LEUK ESTERASE NEGATIVE (NEGATIVE); URINE NITRITE NEGATIVE (NEGATIVE); URINE PROTEIN 2+ (NEGATIVE); URINE RBC 3 /uL (0-23.9); URINE UROBILINOGEN 0.2 mg/dL (0.2-1.0); URINE WBC 15 /uL (0-25.8)
[2023-07-06] MEDS: ACETAMINOPHEN 325 MG TABLET (FP) PO PRN (19:11)
[2023-07-06] MEDS: BACLOFEN 10 MG TABLET (FP) PO SCH (21:29)
[2023-07-06] MEDS: SULFAMETHOXAZOLE/TRIMETHOPRIM 800MG/160MG D.S. TABLET PO SCH (21:35)
[2023-07-09] MEDS: ALBUTEROL SO4 HFA INHALER IH PRN (07:35)
[2023-07-10] MEDS: BUDESONIDE/FORMETEROL FUMARATE 160/4.5 mcg INHALER IH SCH (13:59)
[2023-07-10] MEDS: SIMETHICONE 80 MG TAB.CHEW (FP) PO PRN (19:57)
[2023-07-13 12:35] LABS: INR 1.07 (0.83-1.09); PROTHROMBIN TIME (PATIENT) 12.4 SEC (9.7-13.0)
[2023-07-13 12:40] LABS: POTASSIUM 4.8 mmol/L (3.5-5.1)
[2023-07-13 12:41] LABS: HEMATOCRIT 25.8 % (32.4-45.2); HEMOGLOBIN 7.9 GM/dL (10.7-15.3); MCH 23.3 pg (25.7-33.7); MCHC 30.6 g/dl (32.0-36.0); MEAN CELL VOLUME 76.3 fl (80-96); MEAN PLT VOLUME 9.9 fl (7.5-11.1); PLATELET COUNT 259 10^3/uL (134-434); RBC 3.38 M/mm3 (3.60-5.2); RDW 15.3 % (11.6-15.6); WHITE BLOOD COUNT 5.7 K/mm3 (4.0-10.0)
[2023-07-13 12:42] LABS: ALBUMIN 2.7 g/dl (3.4-5.0); BLOOD UREA NITROGEN 43.7 mg/dL (7-18); MAGNESIUM 1.9 mg/dL (1.8-2.4)
[2023-07-13 12:45] LABS: CREATININE 2.4 mg/dL (0.55-1.3); PHOSPHOROUS 3.9 mg/dL (2.5-4.9)
[2023-07-13 12:46] LABS: TOT PROT 8.3 g/dl (6.4-8.2)
[2023-07-13 12:47] LABS: BILIRUBIN,TOTAL 0.3 mg/dL (0.2-1)
[2023-07-13 17:00] VITALS: BP 132/73; PULSE 86; RESP 17; TEMP 98.6
== END 2023-07-13 23:56 | disposition short-term general hospital (02) | DRG 772 ==
LOC: YASAS 13:27 → Y3NR 18:22 → Y5N 07-05 11:11
PROVIDERS: ADMIT Allergy & Immunology; ATTEND Internal Medicine
PROC: HZ42ZZZ Group Counseling for Substance Abuse Treatment, Cognitive-Behavioral (ICD-10-PCS; principal; 2023-06-30)
DX: F10.20 Alcohol dependence, uncomplicated (principal); F14.20 Cocaine dependence, uncomplicated; F17.210 Nicotine dependence, cigarettes, uncomplicated; B20 Human immunodeficiency virus [HIV] disease; D63.8 Anemia in other chronic diseases classified elsewhere; Z79.899 Other long term (current) drug therapy; N17.9 Acute kidney failure, unspecified; J44.9 Chronic obstructive pulmonary disease, unspecified; M15.9 Polyosteoarthritis, unspecified; N39.0 Urinary tract infection, site not specified; R76.8 Other specified abnormal immunological findings in serum; Z86.19 Personal history of other infectious and parasitic diseases; Z99.89 Dependence on other enabling machines and devices; Z86.59 Personal history of other mental and behavioral disorders; Z88.0 Allergy status to penicillin
CPT/HCPCS: 0241U-QW; 36415; 80053; 80305; 80307; 81003; 82306; 83735; 84100; 85027; 85610; 86593; 86780; 87086; J0475

== ENCOUNTER 2023-07-13 17:57 | Inpatient (IN) | payer OTHER ==
[2023-07-13] MEDS: SODIUM CHLORIDE 0.9% 500 ML INFUS.BAG IV ONE (19:42)
[2023-07-13 19:44] LABS: BASO % 1.2 % (0-2.0); EOS % 1.1 % (0-4.5); HEMATOCRIT 23.4 % (32.4-45.2); HEMOGLOBIN 7.3 GM/dL (10.7-15.3); LYMPH % 30.4 % (8-40); MCH 23.5 pg (25.7-33.7); MCHC 31.3 g/dl (32.0-36.0); MEAN CELL VOLUME 74.9 fl (80-96); MEAN PLT VOLUME 8.5 fl (7.5-11.1); MONO % 11.9 % (3.8-10.2); NEUT % 55.4 % (42.8-82.8); PLATELET COUNT 235 10^3/uL (134-434); RBC 3.13 M/mm3 (3.60-5.2); RDW 15.8 % (11.6-15.6); WHITE BLOOD COUNT 5.5 K/mm3 (4.0-10.0)
[2023-07-13 19:54] LABS: INR 1.06 (0.83-1.09); PROTHROMBIN TIME (PATIENT) 12.3 SEC (9.7-13.0)
[2023-07-13 19:57] LABS: ACTIVATED PTT 32.5 SECONDS (25.2-36.5)
[2023-07-13 19:58] LABS: EPI CELLS 6 /uL (0-25.1); HYALINE CASTS 0 /uL (0-3.1); URINE APPEARANCE CLEAR; URINE BACTERIA 8 /uL (0-1359); URINE BILIRUBIN NEGATIVE (NEGATIVE); URINE COLOR YELLOW; URINE GLUCOSE (UA) NEGATIVE (NEGATIVE); URINE KETONE NEGATIVE (NEGATIVE); URINE LEUK ESTERASE TRACE (NEGATIVE); URINE NITRITE NEGATIVE (NEGATIVE); URINE PROTEIN 1+ (NEGATIVE); URINE RBC 12 /uL (0-23.9); URINE WBC 34 /uL (0-25.8)
[2023-07-13 20:07] LABS: CHLORIDE 113 mmol/L (98-107); POTASSIUM 5.6 mmol/L (3.5-5.1); SODIUM 137 mmol/L (136-145)
[2023-07-13 20:09] LABS: GLUCOSE,RANDOM 97 mg/dL (74-106)
[2023-07-13 20:10] LABS: ALBUMIN 2.6 g/dl (3.4-5.0); ANION GAP 3 mmol/L (4-13); BLOOD UREA NITROGEN 47.9 mg/dL (7-18); CO2 21 mmol/L (21-32)
[2023-07-13 20:13] LABS: CREATININE 2.3 mg/dL (0.55-1.3); SGOT/AST 19 U/L (15-37); SGPT/ALT 12 U/L (13-61)
[2023-07-13 20:14] LABS: TOT PROT 8.2 g/dl (6.4-8.2)
[2023-07-13 20:15] LABS: BILIRUBIN,TOTAL < 0.1 mg/dL (0.2-1)
[2023-07-13 20:16] LABS: ALK PHOS 99 U/L (45-117)
[2023-07-14] MEDS ORDERED: DEXTROSE 50%-WATER 25 GM/50 ML DISP.SYRIN ONE ×2 (00:30→02:10)
[2023-07-14] MEDS: INSULIN REGULAR HUMAN 100 UNITS/ML *VIAL IVPUSH ONE (00:35)
[2023-07-14] MEDS: DEXTROSE 50%-WATER - 25 GM/50 ML VIAL IVPUSH ONE ×2 (00:35→02:10)
[2023-07-14] MEDS: SODIUM CHLORIDE 1,000 ML IV SCH (02:19)
[2023-07-14] MEDS: DEXTROSE 50%-WATER 25 GM/50 ML DISP.SYRIN IVPUSH ONE ×2 (02:48→03:01)
[2023-07-14] MEDS ORDERED: ALBUTEROL SO4 0.083% IH SOL 2.5 MG/3 ML VIAL.NEB. NEB ONE (03:02)
[2023-07-14] MEDS ORDERED: CEFTRIAXONE 1 GM/50 ML BAG ONE (03:02)
[2023-07-14] MEDS: ALBUTEROL SO4 0.083% IH SOL 2.5 MG/3 ML VIAL.NEB. NEB ONE (03:09)
[2023-07-14] MEDS: CEFTRIAXONE 1 GM in DEXTROSE 5%-WATER - 50 ML IVPB SCH (03:09)
[2023-07-14 04:50] LABS: TOTAL IRON BINDING CAPACITY 247 ug/dL (250-450)
[2023-07-14 04:51] LABS: IRON SERUM 52 ug/dL (50-175)
[2023-07-14] MEDS ORDERED: HEPARIN NA (PORCINE) 5,000 UNITS/ML 1ML VIAL ONE (05:46)
[2023-07-14] MEDS: HEPARIN NA (PORCINE) 5,000 UNITS/ML 1ML VIAL SQ SCH (05:50)
[2023-07-14 07:02] LABS: RETICULOCYTES 1.87 % (0.5-1.5)
[2023-07-14 07:26] LABS: HEMATOCRIT 24.3 % (32.4-45.2); HEMOGLOBIN 7.6 GM/dL (10.7-15.3); MCH 23.4 pg (25.7-33.7); MCHC 31.1 g/dl (32.0-36.0); MEAN CELL VOLUME 75.3 fl (80-96); MEAN PLT VOLUME 8.9 fl (7.5-11.1); PLATELET COUNT 227 10^3/uL (134-434); RBC 3.23 M/mm3 (3.60-5.2); RDW 16.2 % (11.6-15.6); WHITE BLOOD COUNT 5.8 K/mm3 (4.0-10.0)
[2023-07-14 07:45] LABS: POTASSIUM 5.1 mmol/L (3.5-5.1)
[2023-07-14 07:55] LABS: ALBUMIN 2.4 g/dl (3.4-5.0); BLOOD UREA NITROGEN 42.3 mg/dL (7-18); CALCIUM 8.8 mg/dL (8.5-10.1); MAGNESIUM 2.1 mg/dL (1.8-2.4)
[2023-07-14 07:58] LABS: CREATININE 2.1 mg/dL (0.55-1.3); PHOSPHOROUS 3.9 mg/dL (2.5-4.9)
[2023-07-14 08:00] LABS: BILIRUBIN,TOTAL 0.2 mg/dL (0.2-1); TOT PROT 7.8 g/dl (6.4-8.2)
[2023-07-14] MEDS: FOLIC ACID 1 MG TABLET (FP) PO SCH (11:31)
[2023-07-14] MEDS: NIFEdipine E.R. 30 MG TABLET PO SCH (11:31)
[2023-07-14] MEDS: THIAMINE HCL 100 MG TABLET (FP) PO SCH (11:31)
[2023-07-14 11:40] VITALS: BMI 19.9
[2023-07-14] MEDS ORDERED: ALBUTEROL SO4 HFA INHALER IH PRN (14:27)
[2023-07-14] MEDS: TIOTROPIUM BROMIDE 2.5 MCG (SPIRIVA) RESPIMAT INHALER IH SCH (15:39)
[2023-07-14] MEDS: ARIPiprazole 10 MG TABLET PO SCH (15:49)
[2023-07-14] MEDS: BUDESONIDE/FORMETEROL FUMARATE 160/4.5 mcg INHALER IH SCH (15:49)
[2023-07-14] MEDS: SODIUM CHLORIDE 0.45% 1,000 ML IV SCH (16:26)
[2023-07-14] MEDS: DARUNAVIR 800 MG/COBICISTAT 150MG TABLET PO SCH ×2 (17:40→17:45)
[2023-07-14] MEDS: DOLUTEGRAVIR SODIUM 50 MG TABLET (NON-FORMULARY) PO SCH ×2 (17:45→21:56)
[2023-07-14] MEDS: ATORVASTATIN CA 20 MG TABLET (FP) PO SCH (21:58)
[2023-07-14] MEDS ORDERED: ROSUVASTATIN CA 20 MG TABLET PO SCH (22:00)
[2023-07-14] MEDS ORDERED: DARUNAVIR 800 MG/COBICISTAT 150MG TABLET PO SCH (22:00)
[2023-07-15] MEDS: SODIUM ZIRCONIUM CYCLOSILICATE (LOKELMA) 5 GM PACKET PO ONE ×3 (01:29→14:12)
[2023-07-15 08:54] LABS: HEMATOCRIT 26.1 % (32.4-45.2); HEMOGLOBIN 8.2 GM/dL (10.7-15.3); MCH 23.6 pg (25.7-33.7); MCHC 31.2 g/dl (32.0-36.0); MEAN CELL VOLUME 75.5 fl (80-96); MEAN PLT VOLUME 8.5 fl (7.5-11.1); PLATELET COUNT 177 10^3/uL (134-434); RBC 3.46 M/mm3 (3.60-5.2); WHITE BLOOD COUNT 4.9 K/mm3 (4.0-10.0)
[2023-07-15 09:01] LABS: POTASSIUM 5.6 mmol/L (3.5-5.1)
[2023-07-15 09:03] LABS: CALCIUM 9.1 mg/dL (8.5-10.1)
[2023-07-15 09:04] LABS: ALBUMIN 2.5 g/dl (3.4-5.0); MAGNESIUM 1.9 mg/dL (1.8-2.4)
[2023-07-15 09:07] LABS: CREATININE 1.8 mg/dL (0.55-1.3)
[2023-07-15 09:09] LABS: BILIRUBIN,TOTAL 0.4 mg/dL (0.2-1); TOT PROT 8.1 g/dl (6.4-8.2)
[2023-07-15] MEDS ORDERED: DEXTROSE 50%-WATER 25 GM/50 ML DISP.SYRIN IVPUSH ONE (12:00)
[2023-07-15] MEDS: CALCIUM GLUCONATE 10% - 1,000 MG/10 ML VIAL IVPB ONE (12:28)
[2023-07-15] MEDS: DEXTROSE 50%-WATER 25 GM/50 ML DISP.SYRIN IVPUSH ONE (13:53)
[2023-07-15] MEDS: INSULIN REGULAR HUMAN 100 UNITS/ML *VIAL IVPUSH ONE (13:55)
[2023-07-15] MEDS: ACETAMINOPHEN 500 MG TABLET (FP) PO ONE (17:10)
[2023-07-15] MEDS: SODIUM ZIRCONIUM CYCLOSILICATE (LOKELMA) 5 GM PACKET PO SCH (21:40)
[2023-07-16 09:21] LABS: HEMATOCRIT 26.1 % (32.4-45.2); HEMOGLOBIN 8.2 GM/dL (10.7-15.3); MCH 23.7 pg (25.7-33.7); MCHC 31.4 g/dl (32.0-36.0); MEAN CELL VOLUME 75.3 fl (80-96); PLATELET COUNT 240 10^3/uL (134-434); RBC 3.47 M/mm3 (3.60-5.2); RDW 16.2 % (11.6-15.6)
[2023-07-16 09:45] LABS: POTASSIUM 4.6 mmol/L (3.5-5.1)
[2023-07-16 09:51] LABS: CALCIUM 8.8 mg/dL (8.5-10.1)
[2023-07-16 09:52] LABS: ALBUMIN 2.5 g/dl (3.4-5.0); BLOOD UREA NITROGEN 39.9 mg/dL (7-18); MAGNESIUM 1.8 mg/dL (1.8-2.4)
[2023-07-16 09:55] LABS: CREATININE 1.9 mg/dL (0.55-1.3); PHOSPHOROUS 4.8 mg/dL (2.5-4.9)
[2023-07-16 09:56] LABS: BILIRUBIN,TOTAL 0.2 mg/dL (0.2-1)
[2023-07-16 09:57] LABS: TOT PROT 7.8 g/dl (6.4-8.2)
[2023-07-16 22:18] VITALS: RESP 20
[2023-07-17 08:17] LABS: HEMATOCRIT 29.6 % (32.4-45.2); HEMOGLOBIN 9.1 GM/dL (10.7-15.3); MCH 23.4 pg (25.7-33.7); MCHC 30.6 g/dl (32.0-36.0); MEAN CELL VOLUME 76.4 fl (80-96); PLATELET COUNT 251 10^3/uL (134-434); RBC 3.87 M/mm3 (3.60-5.2); RDW 15.9 % (11.6-15.6); WHITE BLOOD COUNT 5.6 K/mm3 (4.0-10.0)
[2023-07-17 08:39] LABS: BLOOD UREA NITROGEN 42.8 mg/dL (7-18); CALCIUM 9.2 mg/dL (8.5-10.1); MAGNESIUM 1.8 mg/dL (1.8-2.4)
[2023-07-17 08:40] LABS: ALBUMIN 2.8 g/dl (3.4-5.0)
[2023-07-17 08:42] VITALS: BP 107/69; PULSE 77; TEMP 98.2
[2023-07-17 08:43] LABS: CREATININE 2.1 mg/dL (0.55-1.3); PHOSPHOROUS 4.3 mg/dL (2.5-4.9)
[2023-07-17 08:44] LABS: BILIRUBIN,TOTAL 0.2 mg/dL (0.2-1); TOT PROT 9.1 g/dl (6.4-8.2)
[2023-07-17] MEDS: SODIUM ZIRCONIUM CYCLOSILICATE (LOKELMA) 5 GM PACKET PO SCH (10:32)
== END 2023-07-17 14:03 | disposition other institution (70) | DRG 892 ==
LOC: JER 17:57 → JERBED 21:21 → J7W 07-14 09:31
PROVIDERS: ADMIT Internal Medicine; ATTEND Internal Medicine
DX: N17.9 Acute kidney failure, unspecified (principal); J44.9 Chronic obstructive pulmonary disease, unspecified; D64.9 Anemia, unspecified; E87.20 Acidosis, unspecified; E87.5 Hyperkalemia; D50.9 Iron deficiency anemia, unspecified; B20 Human immunodeficiency virus [HIV] disease; D25.9 Leiomyoma of uterus, unspecified; D25.0 Submucous leiomyoma of uterus; N18.9 Chronic kidney disease, unspecified; F14.20 Cocaine dependence, uncomplicated; F10.20 Alcohol dependence, uncomplicated; T37.0X5A Adverse effect of sulfonamides, initial encounter
CPT/HCPCS: 36415; 74176-TC; 76775-TC; 76830-TC; 80053; 81003; 82436; 82728; 82962; 83540; 83550; 83735; 84100; 84132; 84133; 84300; 84466; 84540; 85025; 85027; 85045; 85610; 85730; 86359; 86360; 86850; 86900; 86901; 87086; 87491; 87591; 93005; 93010; 99285-25